=== PATIENT | male | born 1960 | race Caucasian/White ===

== ENCOUNTER 2019-09-16 15:20 | Inpatient (IN) | payer BC, OTHER ==
[~2019-09-16] VITALS: Ht 177.8 cm; Wt 79.4 kg
[2019-09-16] MEDS: IV NORMAL SALINE 1000ML BAG 1,000 ML IV SCH (16:01)
[2019-09-16] MEDS: fentaNYL PF VIAL 100 MCG/2 ML VIAL IVP PRN ×2 (16:01→22:21)
[2019-09-16] MEDS ORDERED: BENZOCAINE ONE 20% MUCOSAL SPRAY. MM (16:15)
[2019-09-16] MEDS ORDERED: LIDOCAINE 2% JELLY 6ML IN APPLICATOR. MM ONE ×2 (16:15→16:30)
[2019-09-16 17:17] LABS: BASO % 0 % (0-3); EOS % 0 % (0-3); HEMATOCRIT 41.7 % (39.0-53.0); HEMOGLOBIN 14.2 g/dL (13.0-17.5); LYMPH # 0.4 x10^3/uL (1.0-4.8); LYMPH % 2 % (24-48); MEAN CORPUSCULAR HEMOGLOBIN 31 pg (25-35); MEAN CORPUSCULAR HGB CONC 34 g/dL (31-37); MEAN CORPUSCULAR VOLUME 91 fL (79-100); MONO # 0.6 x10^3/uL (0.0-1.1); MONO % 3 % (0-9); NEUT % 95 % (31-73); PLATELET COUNT 313 x10^3/uL (140-400); RED BLOOD COUNT 4.57 x10^6/uL (4.30-5.70); RED CELL DISTRIBUTION WIDTH 13.9 % (11.5-14.5); WHITE BLOOD COUNT 20.1 x10^3/uL (4.0-11.0)
[2019-09-16 17:41] LABS: ALBUMIN 3.9 g/dL (3.4-5.0); CREATININE 1.9 mg/dL (0.7-1.3); GFR 36.2; POTASSIUM 4.6 mmol/L (3.5-5.1); TOTAL BILIRUBIN 0.5 mg/dL (0.2-1.0); TOTAL PROTEIN 7.7 g/dL (6.4-8.2)
[2019-09-16] MEDS ORDERED: PHENOL ORAL SPRAY 177ML BOTTLE. PO PRN (17:45)
--- NOTE | 2019-09-16 18:14 | PDOC2 ---
CONSULT Date of Consult Date of Consult DATE: 09/16/19 TIME: 18:06 Reason for Consult Reason for Consult: small bowel obstruction Referring Physician Referring Physician: Dr Painter Identification/Chief Complaint Chief Complaint abdominal distention Source Source: Chart review, Patient History of Present Illness Reason for Visit: Mr Alvarez is a 59 yo gentleman who for the last few days has had abdominal pain, nausea and bloating. No emesis or diarrhea. Hx of GERD having had previous EGDs Past Medical History Cardiovascular: HTN CENTRAL NERVOUS SYSTEM: CVA GI: GERD Past Surgical History Past Surgical History: Hernia Repair (umbilical, eye surgery) Family History Family History: No Significant Social History No ALCOHOL: none Drugs: None Current Medications Current Medications Current Medications Fentanyl Citrate (Fentanyl 2ml Vial) 50 mcg PRN Q3HRS PRN IVP PAIN Last administered on 09/16/19at 16:01; Start 09/16/19 at 15:45 Sodium Chloride 1,000 ml @ 100 mls/hr Q10H IV Last administered on 09/16/19at 16:01; Start 09/16/19 at 15:45 Lidocaine HCl (Glydo (Lidocaine) Jelly) 2 iván 1X ONCE MM Last administered on 09/16/19at 16:30; Start 09/16/19 at 16:30; Stop 09/16/19 at 16:31; Status DC Benzocaine (Hurricaine One) 1 spray 1X ONCE MM Last administered on 09/16/19at 16:15; Start 09/16/19 at 16:15; Stop 09/16/19 at 16:24; Status DC Lidocaine HCl (Glydo (Lidocaine) Jelly) 2 iván 1X ONCE MM ; Start 09/16/19 at 16:15; Stop 09/16/19 at 16:16; Status UNV Throat Lozenges (Cepacol Sore Throat Lozenge) 1 ted PRN Q2HRS PRN PO SORE THROAT; Start 09/16/19 at 17:45; Status UNV Phenol (Chloraseptic) 1 spray PRN Q2HR PRN PO SORE THROAT; Start 09/16/19 at 17:45; Status UNV Allergies Allergies: Coded Allergies: No Known Drug Allergies (Unverified , 09/16/19) ROS Gastrointestinal: Yes Nausea, Yes Abdominal Pain Physical Exam General: Alert, Oriented X3, No acute distress HEENT: Atraumatic Lungs: Normal air movement Heart: Regular rate Abdomen: Other (distended, soft, minimally TTP ) Extremities: No clubbing Skin: Other (warm, dry) Neuro: Normal speech Vitals VITALS Vital Signs Date Time Temp Pulse Resp B/P (MAP) Pulse Ox O2 Delivery O2 Flow Rate FiO2 09/16/19 16:31 Room Air Labs Labs Laboratory Tests Test 09/16/19 17:10 White Blood Count 20.1 x10^3/uL (4.0-11.0) Red Blood Count 4.57 x10^6/uL (4.30-5.70) Hemoglobin 14.2 g/dL (13.0-17.5) Hematocrit 41.7 % (39.0-53.0) Mean Corpuscular Volume 91 fL (79-100) Mean Corpuscular Hemoglobin 31 pg (25-35) Mean Corpuscular Hemoglobin Concent 34 g/dL (31-37) Red Cell Distribution Width 13.9 % (11.5-14.5) Platelet Count 313 x10^3/uL (140-400) Neutrophils (%) (Auto) 95 % (31-73) Lymphocytes (%) (Auto) 2 % (24-48) Monocytes (%) (Auto) 3 % (0-9) Eosinophils (%) (Auto) 0 % (0-3) Basophils (%) (Auto) 0 % (0-3) Neutrophils # (Auto) 19.0 x10^3/uL (1.8-7.7) Lymphocytes # (Auto) 0.4 x10^3/uL (1.0-4.8) Monocytes # (Auto) 0.6 x10^3/uL (0.0-1.1) Eosinophils # (Auto) 0.0 x10^3/uL (0.0-0.7) Basophils # (Auto) 0.0 x10^3/uL (0.0-0.2) Sodium Level 137 mmol/L (136-145) Potassium Level 4.6 mmol/L (3.5-5.1) Chloride Level 97 mmol/L (98-107) Carbon Dioxide Level 31 mmol/L (21-32) Anion Gap 9 (6-14) Blood Urea Nitrogen 37 mg/dL (8-26) Creatinine 1.9 mg/dL (0.7-1.3) Estimated GFR (Cockcroft-Gault) 36.2 BUN/Creatinine Ratio 19 (6-20) Glucose Level 183 mg/dL (70-99) Lactic Acid Level 3.0 mmol/L (0.4-2.0) Calcium Level 10.0 mg/dL (8.5-10.1) Total Bilirubin 0.5 mg/dL (0.2-1.0) Aspartate Amino Transf (AST/SGOT) 13 U/L (15-37) Alanine Aminotransferase (ALT/SGPT) 28 U/L (16-63) Alkaline Phosphatase 66 U/L (46-116) Lactate Dehydrogenase 144 U/L (85-227) Total Protein 7.7 g/dL (6.4-8.2) Albumin 3.9 g/dL (3.4-5.0) Albumin/Globulin Ratio 1.0 (1.0-1.7) Laboratory Tests Test 09/16/19 17:10 White Blood Count 20.1 x10^3/uL (4.0-11.0) Red Blood Count 4.57 x10^6/uL (4.30-5.70) Hemoglobin 14.2 g/dL (13.0-17.5) Hematocrit 41.7 % (39.0-53.0) Mean Corpuscular Volume 91 fL (79-100) Mean Corpuscular Hemoglobin 31 pg (25-35) Mean Corpuscular Hemoglobin Concent 34 g/dL (31-37) Red Cell Distribution Width 13.9 % (11.5-14.5) Platelet Count 313 x10^3/uL (140-400) Neutrophils (%) (Auto) 95 % (31-73) Lymphocytes (%) (Auto) 2 % (24-48) Monocytes (%) (Auto) 3 % (0-9) Eosinophils (%) (Auto) 0 % (0-3) Basophils (%) (Auto) 0 % (0-3) Neutrophils # (Auto) 19.0 x10^3/uL (1.8-7.7) Lymphocytes # (Auto) 0.4 x10^3/uL (1.0-4.8) Monocytes # (Auto) 0.6 x10^3/uL (0.0-1.1) Eosinophils # (Auto) 0.0 x10^3/uL (0.0-0.7) Basophils # (Auto) 0.0 x10^3/uL (0.0-0.2) Sodium Level 137 mmol/L (136-145) Potassium Level 4.6 mmol/L (3.5-5.1) Chloride Level 97 mmol/L (98-107) Carbon Dioxide Level 31 mmol/L (21-32) Anion Gap 9 (6-14) Blood Urea Nitrogen 37 mg/dL (8-26) Creatinine 1.9 mg/dL (0.7-1.3) Estimated GFR (Cockcroft-Gault) 36.2 BUN/Creatinine Ratio 19 (6-20) Glucose Level 183 mg/dL (70-99) Lactic Acid Level 3.0 mmol/L (0.4-2.0) Calcium Level 10.0 mg/dL (8.5-10.1) Total Bilirubin 0.5 mg/dL (0.2-1.0) Aspartate Amino Transf (AST/SGOT) 13 U/L (15-37) Alanine Aminotransferase (ALT/SGPT) 28 U/L (16-63) Alkaline Phosphatase 66 U/L (46-116) Lactate Dehydrogenase 144 U/L (85-227) Total Protein 7.7 g/dL (6.4-8.2) Albumin 3.9 g/dL (3.4-5.0) Albumin/Globulin Ratio 1.0 (1.0-1.7) Images Images CT done at [facility] earlier today is reviewed Assessment/Plan Assessment/Plan SBO acidosis follow labs NG placed with 1000 cc old heme immediate return serial labs, X rays will follow Thanks for consult RAMAN GRIDER MD Sep 16, 2019 18:14
[2019-09-16] MEDS ORDERED: TELM1TAB PO (18:25)
[2019-09-16] MEDS ORDERED: ATOR20TA58 PO (18:26)
[2019-09-16 19:00] VITALS: BP 118/78
[2019-09-16] MEDS ORDERED: BENZOCAINE/MENTHOL LOZENGE. PO PRN (19:00)
[2019-09-16] MEDS: BENZOCAINE/MENTHOL LOZENGE. PO PRN (19:33)
--- NOTE | 2019-09-16 21:45 | NUR ---
Dr. Painter notified of lactic acid re-draw level of 2.5. Per MD, no orders received for re-draw of lactic level and continue IV fluids. Patient in bed, will continue to monitor.
[2019-09-16 23:00] VITALS: BP 131/82
[2019-09-17] VITALS (13 sets, daily range): BP systolic 84–129; BP diastolic 50–85
[2019-09-17] MEDS: IV NORMAL SALINE 1000ML BAG 1,000 ML IV SCH ×3 (01:42→21:33)
[2019-09-17] MEDS: BENZOCAINE/MENTHOL LOZENGE. PO PRN (06:07)
--- NOTE | 2019-09-17 06:35 | PDOC ---
SURGICAL PROGRESS NOTE Subjective had a little emesis earlier, tube adjusted, now with good drainage and no further emesis Vital Signs Vital Signs Date Time Temp Pulse Resp B/P (MAP) Pulse Ox O2 Delivery O2 Flow Rate FiO2 09/17/19 03:00 98.5 112 22 129/85 (100) 91 Room Air 98.5 I&O Intake and Output 09/17/19 07:00 Intake Total 100 ml Output Total 3600 ml Balance -3500 ml Intake Oral 100 ml Output Gastric Drainage Total 3600 ml # Voids 1 PATIENT HAS A REDMAN: No General: Alert, No acute distress HEENT: Other (NG with old heme ) Lungs: Normal air movement Abdomen: Soft, Other (distended) Labs Laboratory Tests Test 09/16/19 17:10 09/16/19 20:20 White Blood Count 20.1 x10^3/uL (4.0-11.0) Red Blood Count 4.57 x10^6/uL (4.30-5.70) Hemoglobin 14.2 g/dL (13.0-17.5) Hematocrit 41.7 % (39.0-53.0) Mean Corpuscular Volume 91 fL (79-100) Mean Corpuscular Hemoglobin 31 pg (25-35) Mean Corpuscular Hemoglobin Concent 34 g/dL (31-37) Red Cell Distribution Width 13.9 % (11.5-14.5) Platelet Count 313 x10^3/uL (140-400) Neutrophils (%) (Auto) 95 % (31-73) Lymphocytes (%) (Auto) 2 % (24-48) Monocytes (%) (Auto) 3 % (0-9) Eosinophils (%) (Auto) 0 % (0-3) Basophils (%) (Auto) 0 % (0-3) Neutrophils # (Auto) 19.0 x10^3/uL (1.8-7.7) Lymphocytes # (Auto) 0.4 x10^3/uL (1.0-4.8) Monocytes # (Auto) 0.6 x10^3/uL (0.0-1.1) Eosinophils # (Auto) 0.0 x10^3/uL (0.0-0.7) Basophils # (Auto) 0.0 x10^3/uL (0.0-0.2) Sodium Level 137 mmol/L (136-145) Potassium Level 4.6 mmol/L (3.5-5.1) Chloride Level 97 mmol/L (98-107) Carbon Dioxide Level 31 mmol/L (21-32) Anion Gap 9 (6-14) Blood Urea Nitrogen 37 mg/dL (8-26) Creatinine 1.9 mg/dL (0.7-1.3) Estimated GFR (Cockcroft-Gault) 36.2 BUN/Creatinine Ratio 19 (6-20) Glucose Level 183 mg/dL (70-99) Lactic Acid Level 3.0 mmol/L (0.4-2.0) 2.5 mmol/L (0.4-2.0) Calcium Level 10.0 mg/dL (8.5-10.1) Total Bilirubin 0.5 mg/dL (0.2-1.0) Aspartate Amino Transf (AST/SGOT) 13 U/L (15-37) Alanine Aminotransferase (ALT/SGPT) 28 U/L (16-63) Alkaline Phosphatase 66 U/L (46-116) Lactate Dehydrogenase 144 U/L (85-227) Total Protein 7.7 g/dL (6.4-8.2) Albumin 3.9 g/dL (3.4-5.0) Albumin/Globulin Ratio 1.0 (1.0-1.7) Laboratory Tests Test 09/16/19 17:10 09/16/19 20:20 White Blood Count 20.1 x10^3/uL (4.0-11.0) Red Blood Count 4.57 x10^6/uL (4.30-5.70) Hemoglobin 14.2 g/dL (13.0-17.5) Hematocrit 41.7 % (39.0-53.0) Mean Corpuscular Volume 91 fL (79-100) Mean Corpuscular Hemoglobin 31 pg (25-35) Mean Corpuscular Hemoglobin Concent 34 g/dL (31-37) Red Cell Distribution Width 13.9 % (11.5-14.5) Platelet Count 313 x10^3/uL (140-400) Neutrophils (%) (Auto) 95 % (31-73) Lymphocytes (%) (Auto) 2 % (24-48) Monocytes (%) (Auto) 3 % (0-9) Eosinophils (%) (Auto) 0 % (0-3) Basophils (%) (Auto) 0 % (0-3) Neutrophils # (Auto) 19.0 x10^3/uL (1.8-7.7) Lymphocytes # (Auto) 0.4 x10^3/uL (1.0-4.8) Monocytes # (Auto) 0.6 x10^3/uL (0.0-1.1) Eosinophils # (Auto) 0.0 x10^3/uL (0.0-0.7) Basophils # (Auto) 0.0 x10^3/uL (0.0-0.2) Sodium Level 137 mmol/L (136-145) Potassium Level 4.6 mmol/L (3.5-5.1) Chloride Level 97 mmol/L (98-107) Carbon Dioxide Level 31 mmol/L (21-32) Anion Gap 9 (6-14) Blood Urea Nitrogen 37 mg/dL (8-26) Creatinine 1.9 mg/dL (0.7-1.3) Estimated GFR (Cockcroft-Gault) 36.2 BUN/Creatinine Ratio 19 (6-20) Glucose Level 183 mg/dL (70-99) Lactic Acid Level 3.0 mmol/L (0.4-2.0) 2.5 mmol/L (0.4-2.0) Calcium Level 10.0 mg/dL (8.5-10.1) Total Bilirubin 0.5 mg/dL (0.2-1.0) Aspartate Amino Transf (AST/SGOT) 13 U/L (15-37) Alanine Aminotransferase (ALT/SGPT) 28 U/L (16-63) Alkaline Phosphatase 66 U/L (46-116) Lactate Dehydrogenase 144 U/L (85-227) Total Protein 7.7 g/dL (6.4-8.2) Albumin 3.9 g/dL (3.4-5.0) Albumin/Globulin Ratio 1.0 (1.0-1.7) this AM labs PND I have reviewed the following plain abd films PND Assessment/Plan SBO UGI bleeding follow labs, x rays consult GI start PPI RAMAN GRIDER MD Sep 17, 2019 06:35
[2019-09-17 08:09] LABS: BASO % 0 % (0-3); EOS % 0 % (0-3); HEMATOCRIT 41.5 % (39.0-53.0); HEMOGLOBIN 14.2 g/dL (13.0-17.5); LYMPH # 0.6 x10^3/uL (1.0-4.8); LYMPH % 3 % (24-48); MEAN CORPUSCULAR HEMOGLOBIN 31 pg (25-35); MEAN CORPUSCULAR HGB CONC 34 g/dL (31-37); MEAN CORPUSCULAR VOLUME 91 fL (79-100); MONO # 1.4 x10^3/uL (0.0-1.1); MONO % 6 % (0-9); NEUT % 91 % (31-73); PLATELET COUNT 347 x10^3/uL (140-400); RED BLOOD COUNT 4.55 x10^6/uL (4.30-5.70); RED CELL DISTRIBUTION WIDTH 14.2 % (11.5-14.5); WHITE BLOOD COUNT 21.9 x10^3/uL (4.0-11.0)
[2019-09-17] MEDS: PANTOPRAZOLE IV PUSH 40 MG VIAL. IVP SCH (08:33)
[2019-09-17 08:34] LABS: CALCIUM 10.6 mg/dL (8.5-10.1); CREATININE 2.2 mg/dL (0.7-1.3); GFR 30.6; POTASSIUM 4.2 mmol/L (3.5-5.1)
--- NOTE | 2019-09-17 09:00 | RAD ---
Portable supine abdomen-3 images HISTORY: Small bowel obstruction follow-up. COMPARISON: No prior radiographs for correlation with CT scan of previous day. FINDINGS: Small bowel loops are moderately distended with gas compatible with obstruction. No definite free intraperitoneal gas is seen. Mild atelectasis or infiltrate in lung bases. Endogastric tube extends to the left upper quadrant, overlying the gastric bubble. Small focal abdominal densities may represent bowel content. IMPRESSION: Small bowel obstruction. Electronically signed by: Delbert Weathers MD (09/17/2019 8:57 AM) [facility]
--- NOTE | 2019-09-17 09:23 | PDOC ---
Provider Note Provider Note SURG increased lactic acid and WBC still with lots of NG return belly soft, non TTP given labs recommend l/s poss laparotomy risks including but not limited to bleeding, infection injury to abdominal contents, anastomotic leak, possible stoma he will proceed RAMAN GRIDER MD Sep 17, 2019 09:23
[2019-09-17] MEDS ORDERED: ROCURONIUM 50 MG/5 ML VIAL. ONE (09:30)
[2019-09-17] MEDS ORDERED: DEXAMETHASONE SOD PHOS 4 MG/ML VIAL ONE (09:30)
[2019-09-17] MEDS ORDERED: GLYCOPYRROLATE 1 MG/5 ML VIAL. ONE (09:30)
[2019-09-17] MEDS ORDERED: LIDOCAINE 2% PF 5 ML VIAL. ONE ×2 (09:30→12:43)
[2019-09-17] MEDS ORDERED: NEOSTIGMINE METHYLSULFATE 5 MG/5 ML SYRINGE. ONE (09:30)
[2019-09-17] MEDS ORDERED: PROPOFOL 20 ML IV ONE (09:30)
[2019-09-17] MEDS ORDERED: ONDANSETRON PF 4 MG/2 ML VIAL. ONE (09:30)
[2019-09-17] MEDS ORDERED: PIPERACILLIN/TAZOBACTAM 3.375 GM in IV NORMAL SALINE 50ML 50 ML IV ONE (09:30)
[2019-09-17] MEDS ORDERED: DESFLURANE 61 TO 120 MINUTES IH ONE (09:30)
[2019-09-17] MEDS ORDERED: fentaNYL PF VIAL 100 MCG/2 ML VIAL ONE ×3 (09:30→13:22)
[2019-09-17] MEDS ORDERED: IV RINGERS,LACTATED 1000ML 1,000 ML IV SCH (09:52)
[2019-09-17] MEDS ORDERED: PROCHLORPERAZINE 10 MG/2 ML VIAL. IV PRN (10:00)
[2019-09-17] MEDS ORDERED: fentaNYL PF VIAL 100 MCG/2 ML VIAL IV PRN ×2 (10:00)
[2019-09-17] MEDS ORDERED: ONDANSETRON PF 4 MG/2 ML VIAL. IV PRN (10:00)
[2019-09-17] MEDS ORDERED: MORPHINE SULFATE 2 MG/ML VIAL. IV PRN (10:00)
[2019-09-17] MEDS ORDERED: HYDROmorphone 2 MG/ML VIAL IV PRN (10:00)
[2019-09-17] MEDS ORDERED: LIDOCAINE 1% PF 2 ML VIAL. ID PRN (10:00)
[2019-09-17] MEDS ORDERED: BUPIVACAINE-EPI 0.5%-1:200000 MPF 30 ML VIAL. INJ ONE (11:15)
[2019-09-17] MEDS ORDERED: PHENYLEPHRINE in 0.9% NACL PF 1 MG/10 ML SYRINGE. IV ONE ×3 (11:28→12:21)
[2019-09-17 11:30] LABS: % BANDS 3 % (0-9); % LYMPHS 5 % (24-48); % MONOS 7 % (0-10); % SEGS 85 % (35-66); PLT ESTIMATE ADEQUATE (ADEQUATE)
--- NOTE | 2019-09-17 13:48 | PDOC ---
BRIEF OPERATIVE NOTE Date: Sep 17, 2019 Pre-Op Diagnosis SBO, lactic acidosis Post-Op Diagnosis same with adhesions mid-ileum Procedure Performed l/s -> laparotomy with YOANNA Surgeon Alvaro Paleobotanist Charlene TAVERAS Anesthesia Type: General Blood Loss 45cc IV Fluid 2300cc Urine Output 100cc Specimens Obtained none Findings adhesions RLQ mid ileum, viable bowel Complications none Operative Note Wk # [id number] RAMAN GRIDER MD Sep 17, 2019 13:48
--- NOTE | 2019-09-17 14:21 | NUR ---
Bonilla catheter discontinued at this time post-surgery.
--- NOTE | 2019-09-17 14:50 | OP ---
DATE OF SURGERY: 09/17/2019 PREOPERATIVE DIAGNOSIS: Small bowel obstruction with lactic acidosis. POSTOPERATIVE DIAGNOSIS: Small bowel obstruction with lactic acidosis with adhesions in the mid ileum. PROCEDURE PERFORMED: Laparoscopic converted to open exploration with lysis of adhesions. SURGEON: Yefri Grider M.D. [employer]ER [employer]: DARCY Patton ANESTHESIA: General endotracheal. ESTIMATED BLOOD LOSS: 45 mL. INTRAVENOUS FLUIDS: 2300 mL. URINE OUTPUT: 100 mL. INDICATIONS: The patient is a 59-year-old who presented with a small-bowel obstruction and a copious NG return. His lactic acid went up overnight and despite a benign exam he is brought for exploration to assure bowel viability. OPERATIVE FINDINGS: In the mid ileum, there were several loops of small bowel that were adherent and creating a physical obstruction with dilated bowel proximally and decompressed bowel distal to the process. All bowel was viable. DESCRIPTION OF PROCEDURE: The patient was brought to the operating suite, given a general endotracheal anesthetic. Bonilla catheter placed to dependent drainage and the abdomen was prepped and draped in the usual sterile fashion. A supraumbilical incision was infiltrated with local anesthetic, incised, and a 5-mm Visiport used to safely gain access into the abdominal cavity avoiding injury to abdominal contents. Under direct vision, a lower midline port and a left lower quadrant port were each placed. With the table in Trendelenburg rolled to the left, we tried to identify the transition point between dilated and nondilated bowel and in doing so, found an area of extensive adhesions within the bowel loops. This prompted converting to an open procedure by connecting the port sites in the midline with a midline incision. The small bowel was run from ligament of Treitz to the ileocecal valve. The area of obstruction was encountered and carefully taken down with sharp dissection. No enterotomies were created. Bowel was run again from ligament of Treitz to ileocecal valve. It was found to be viable without any remaining obstruction. In light of this and on a correct sponge count was obtained, the incision was closed in a single layer using looped 0 PDS in running fashion, tied in the middle. Subq approximated with 3-0 Vicryl, skin closed with a subcuticular 4-0 Monocryl. Steri-Strips and sterile dressings applied. Postop foreign body film was negative for unexplained foreign body. The patient was awakened from his anesthetic and taken to the recovery room in satisfactory condition. YEFRI GRIDER MD DR: VALORIE/sven JOB#: [id number] / [id number] ANNE Montes MD
--- NOTE | 2019-09-17 15:27 | RAD ---
AP abdomen radiograph 09/17/2019 CLINICAL HISTORY: Post exploratory lap. An AP supine digital radiograph abdomen/pelvis was obtained. Mild air distention of both small and large bowel loops is seen which likely reflects an ileus. No retained surgical instrument or needle is seen. The osseous structures are grossly intact. IMPRESSION: No retained surgical instrument or needle is seen. Electronically signed by: Dwayne Lopez MD (09/17/2019 3:24 PM) [id number]
[2019-09-17] MEDS: fentaNYL PF VIAL 100 MCG/2 ML VIAL IVP PRN (15:34)
--- NOTE | 2019-09-17 16:04 | PDOC2 ---
CONSULT Date of Consult Date of Consult DATE: 09/17/19 TIME: 15:59 Reason for Consult Reason for Consult: Blood in the NG tube aspirate History of Present Illness Reason for Visit: This a 59-year-old gentleman who presents with the relatively sudden set of abdominal distention and pain. He was found on imaging to have a small bowel obstruction. He has had an repair but no other abdominal surgeries. An NG tube was placed initially for decompression and old blood was noted in the NG aspirate. History is that of long-standing reflux for which he takes [id number] Prilosec. He denies dysphagia and has a history of previous endoscopy years ago. He denies a prior history of peptic ulcer disease. Not had a prior screening colonoscopy. Past Medical History Cardiovascular: HTN CENTRAL NERVOUS SYSTEM: CVA GI: GERD Past Surgical History Past Surgical History: Hernia Repair (umbilical, eye surgery) Family History Family History: No Significant Social History No ALCOHOL: none Drugs: None Current Medications Current Medications Current Medications Fentanyl Citrate (Fentanyl 2ml Vial) 50 mcg PRN Q3HRS PRN IVP PAIN Last administered on 09/17/19at 15:34; Start 09/16/19 at 15:45 Sodium Chloride 1,000 ml @ 100 mls/hr Q10H IV Last administered on 09/17/19at 13:55; Start 09/16/19 at 15:45 Lidocaine HCl (Glydo (Lidocaine) Jelly) 2 vián 1X ONCE MM Last administered on 09/16/19at 16:30; Start 09/16/19 at 16:30; Stop 09/16/19 at 16:31; Status DC Benzocaine (Hurricaine One) 1 spray 1X ONCE MM Last administered on 09/16/19at 16:15; Start 09/16/19 at 16:15; Stop 09/16/19 at 16:24; Status DC Lidocaine HCl (Glydo (Lidocaine) Jelly) 2 iván 1X ONCE MM ; Start 09/16/19 at 16:15; Stop 09/16/19 at 16:16; Status UNV Throat Lozenges (Cepacol Sore Throat Lozenge) 1 ted PRN Q2HRS PRN PO SORE THROAT Last administered on 09/17/19at 06:07; Start 09/16/19 at 17:45; Stop 1/1/20 at 09:23; Status DC Phenol (Chloraseptic) 1 spray PRN Q2HR PRN PO SORE THROAT; Start 09/16/19 at 17:45 Throat Lozenges (Cepacol Sore Throat Lozenge) 1 ted PRN Q2HRS PRN PO SORE THROAT; Start 09/16/19 at 19:00 Pantoprazole Sodium (PROTONIX VIAL for IV PUSH) 40 mg DAILYAC IVP Last administ ered on 09/17/19at 08:33; Start 09/17/19 at 07:30 Piperacillin Sod/ Tazobactam Sod 3.375 gm/Sodium Chloride 50 ml @ 100 mls/hr 1X ONCE IV Last administered on 09/17/19at 11:05; Start 09/17/19 at 09:30; Stop 09/17/19 at 09:59; Status DC Fentanyl Citrate (Fentanyl 2ml Vial) 100 mcg STK-MED ONCE .ROUTE ; Start 09/17/19 at 09:30; Stop 09/17/19 at 09:30; Status DC Glycopyrrolate (Robinul) 1 mg STK-MED ONCE .ROUTE ; Start 09/17/19 at 09:30; Stop 09/17/19 at 09:30; Status DC Neostigmine Methylsulfate (Neostigmine Methylsulfate) 5 mg STK-MED ONCE .ROUTE ; Start 09/17/19 at 09:30; Stop 09/17/19 at 09:30; Status DC Rocuronium [place] (Zemuron) 50 mg STK-MED ONCE .ROUTE ; Start 09/17/19 at 09:30; Stop 09/17/19 at 09:30; Status DC Desflurane (Suprane) 60 ml STK-MED ONCE IH ; Start 09/17/19 at 09:30; Stop 09/17/19 at 09:31; Status DC Propofol 20 ml @ As Directed STK-MED ONCE IV ; Start 09/17/19 at 09:30; Stop 09/17/19 at 09:31; Status DC Lidocaine HCl (Lidocaine Pf 2% Vial) 5 ml STK-MED ONCE .ROUTE ; Start 09/17/19 at 09:30; Stop 09/17/19 at 09:31; Status DC Ondansetron HCl (Zofran) 4 mg STK-MED ONCE .ROUTE ; Start 09/17/19 at 09:30; Stop 09/17/19 at 09:31; Status DC Dexamethasone Sodium Phosphate (Decadron) 4 mg STK-MED ONCE .ROUTE ; Start 09/17/19 at 09:30; Stop 09/17/19 at 09:31; Status DC Ondansetron HCl (Zofran) 4 mg PRN Q6HRS PRN IV NAUSEA/VOMITING; Start 09/17/19 at 10:00; Stop 09/17/19 at 20:00 Fentanyl Citrate (Fentanyl 2ml Vial) 25 mcg PRN Q5MIN PRN IV MILD PAIN 1-3; Start 09/17/19 at 10:00; Stop 09/17/19 at 20:00 Fentanyl Citrate (Fentanyl 2ml Vial) 50 mcg PRN Q5MIN PRN IV MODERATE TO SEVERE PAIN Last administered on 09/17/19at 13:25; Start 09/17/19 at 10:00; Stop 09/17/19 at 20:00 Morphine Sulfate (Morphine Sulfate) 1 mg PRN Q10MIN PRN IV SEVERE PAIN 7-10; Start 09/17/19 at 10:00; Stop 09/17/19 at 20:00 Ringer's Solution 1,000 ml @ 30 mls/hr Q24H IV ; Start 09/17/19 at 09:52; Stop 09/17/19 at 21:51 Lidocaine HCl (Xylocaine-Mpf 1% 2ml Vial) 2 ml PRN 1X PRN ID PRIOR TO IV START; Start 09/17/19 at 10:00; Stop 09/17/19 at 20:00 Hydromorphone HCl (Dilaudid) 0.5 mg PRN Q10MIN PRN IV SEV PAIN, Second choice; Start 09/17/19 at 10:00; Stop 09/17/19 at 20:00 Prochlorperazine Edisylate (Compazine) 5 mg PACU PRN PRN IV NAUSEA, MRX1; Start 09/17/19 at 10:00; Stop 09/17/19 at 20:00 Bupivacaine HCl/ Epinephrine Bitart (Sensorcain-Epi 0.5%-1:419097 Mpf) 30 ml 1X ONCE INJ Last administered on 09/17/19at 11:34; Start 09/17/19 at 11:15; Stop 09/17/19 at 11:16; Status DC Phenylephrine HCl (PHENYLEPHRINE in 0.9% NACL PF) 1 mg STK-MED ONCE IV ; Start 09/17/19 at 11:28; Stop 09/17/19 at 11:28; Status DC Phenylephrine HCl (PHENYLEPHRINE in 0.9% NACL PF) 1 mg STK-MED ONCE IV ; Start 09/17/19 at 11:43; Stop 09/17/19 at 11:44; Status DC Phenylephrine HCl (PHENYLEPHRINE in 0.9% NACL PF) 1 mg STK-MED ONCE IV ; Start 09/17/19 at 12:21; Stop 09/17/19 at 12:21; Status DC Fentanyl Citrate (Fentanyl 2ml Vial) 100 mcg STK-MED ONCE .ROUTE ; Start 09/17/19 at 12:21; Stop 09/17/19 at 12:22; Status DC Lidocaine HCl (Lidocaine Pf 2% Vial) 5 ml STK-MED ONCE .ROUTE ; Start 09/17/19 at 12:43; Stop 09/17/19 at 12:43; Status DC Fentanyl Citrate (Fentanyl 2ml Vial) 100 mcg STK-MED ONCE .ROUTE ; Start 09/17/19 at 13:22; Stop 09/17/19 at 13:23; Status DC Active Scripts Active Reported Atorvastatin Calcium 20 Mg Tablet 1 Tab PO DAILY Micardis Hct 80-25 Mg Tablet (Telmisartan/Hydrochlorothiazid) 1 Each Tablet 1 Tab PO DAILY Allergies Allergies: Coded Allergies: No Known Drug Allergies (Unverified , 09/16/19) Physical Exam General: Alert, Oriented X3 HEENT: Atraumatic Lungs: Clear to auscultation Heart: Regular rate, Normal S1, Normal S2 Abdomen: Soft, No tenderness, No hepatosplenomegaly, Other (post op, soft, few bowel sounds) Extremities: No clubbing Psych/Mental Status: Mental status NL Vitals VITALS Vital Signs Date Time Temp Pulse Resp B/P (MAP) Pulse Ox O2 Delivery O2 Flow Rate FiO2 09/17/19 15:34 94 Nasal Cannula 2.0 09/17/19 14:15 102 22 91/58 (69) 09/17/19 13:22 98.1 98.1 Labs Labs Laboratory Tests Test 09/16/19 17:10 09/16/19 20:20 09/17/19 07:58 White Blood Count 20.1 x10^3/uL (4.0-11.0) 21.9 x10^3/uL (4.0-11.0) Red Blood Count 4.57 x10^6/uL (4.30-5.70) 4.55 x10^6/uL (4.30-5.70) Hemoglobin 14.2 g/dL (13.0-17.5) 14.2 g/dL (13.0-17.5) Hematocrit 41.7 % (39.0-53.0) 41.5 % (39.0-53.0) Mean Corpuscular Volume 91 fL (79-100) 91 fL (79-100) Mean Corpuscular Hemoglobin 31 pg (25-35) 31 pg (25-35) Mean Corpuscular Hemoglobin Concent 34 g/dL (31-37) 34 g/dL (31-37) Red Cell Distribution Width 13.9 % (11.5-14.5) 14.2 % (11.5-14.5) Platelet Count 313 x10^3/uL (140-400) 347 x10^3/uL (140-400) Neutrophils (%) (Auto) 95 % (31-73) 91 % (31-73) Lymphocytes (%) (Auto) 2 % (24-48) 3 % (24-48) Monocytes (%) (Auto) 3 % (0-9) 6 % (0-9) Eosinophils (%) (Auto) 0 % (0-3) 0 % (0-3) Basophils (%) (Auto) 0 % (0-3) 0 % (0-3) Neutrophils # (Auto) 19.0 x10^3/uL (1.8-7.7) 20.0 x10^3/uL (1.8-7.7) Lymphocytes # (Auto) 0.4 x10^3/uL (1.0-4.8) 0.6 x10^3/uL (1.0-4.8) Monocytes # (Auto) 0.6 x10^3/uL (0.0-1.1) 1.4 x10^3/uL (0.0-1.1) Eosinophils # (Auto) 0.0 x10^3/uL (0.0-0.7) 0.0 x10^3/uL (0.0-0.7) Basophils # (Auto) 0.0 x10^3/uL (0.0-0.2) 0.0 x10^3/uL (0.0-0.2) Sodium Level 137 mmol/L (136-145) 142 mmol/L (136-145) Potassium Level 4.6 mmol/L (3.5-5.1) 4.2 mmol/L (3.5-5.1) Chloride Level 97 mmol/L (98-107) 97 mmol/L (98-107) Carbon Dioxide Level 31 mmol/L (21-32) 35 mmol/L (21-32) Anion Gap 9 (6-14) 10 (6-14) Blood Urea Nitrogen 37 mg/dL (8-26) 55 mg/dL (8-26) Creatinine 1.9 mg/dL (0.7-1.3) 2.2 mg/dL (0.7-1.3) Estimated GFR (Cockcroft-Gault) 36.2 30.6 BUN/Creatinine Ratio 19 (6-20) Glucose Level 183 mg/dL (70-99) 160 mg/dL (70-99) Lactic Acid Level 3.0 mmol/L (0.4-2.0) 2.5 mmol/L (0.4-2.0) 3.4 mmol/L (0.4-2.0) Calcium Level 10.0 mg/dL (8.5-10.1) 10.6 mg/dL (8.5-10.1) Total Bilirubin 0.5 mg/dL (0.2-1.0) Aspartate Amino Transf (AST/SGOT) 13 U/L (15-37) Alanine Aminotransferase (ALT/SGPT) 28 U/L (16-63) Alkaline Phosphatase 66 U/L (46-116) Lactate Dehydrogenase 144 U/L (85-227) Total Protein 7.7 g/dL (6.4-8.2) Albumin 3.9 g/dL (3.4-5.0) Albumin/Globulin Ratio 1.0 (1.0-1.7) Segmented Neutrophils % 85 % (35-66) Band Neutrophils % 3 % (0-9) Lymphocytes % 5 % (24-48) Monocytes % 7 % (0-10) Platelet Estimate Adequate (ADEQUATE) Laboratory Tests Test 09/16/19 17:10 09/16/19 20:20 09/17/19 07:58 White Blood Count 20.1 x10^3/uL (4.0-11.0) 21.9 x10^3/uL (4.0-11.0) Red Blood Count 4.57 x10^6/uL (4.30-5.70) 4.55 x10^6/uL (4.30-5.70) Hemoglobin 14.2 g/dL (13.0-17.5) 14.2 g/dL (13.0-17.5) Hematocrit 41.7 % (39.0-53.0) 41.5 % (39.0-53.0) Mean Corpuscular Volume 91 fL (79-100) 91 fL (79-100) Mean Corpuscular Hemoglobin 31 pg (25-35) 31 pg (25-35) Mean Corpuscular Hemoglobin Concent 34 g/dL (31-37) 34 g/dL (31-37) Red Cell Distribution Width 13.9 % (11.5-14.5) 14.2 % (11.5-14.5) Platelet Count 313 x10^3/uL (140-400) 347 x10^3/uL (140-400) Neutrophils (%) (Auto) 95 % (31-73) 91 % (31-73) Lymphocytes (%) (Auto) 2 % (24-48) 3 % (24-48) Monocytes (%) (Auto) 3 % (0-9) 6 % (0-9) Eosinophils (%) (Auto) 0 % (0-3) 0 % (0-3) Basophils (%) (Auto) 0 % (0-3) 0 % (0-3) Neutrophils # (Auto) 19.0 x10^3/uL (1.8-7.7) 20.0 x10^3/uL (1.8-7.7) Lymphocytes # (Auto) 0.4 x10^3/uL (1.0-4.8) 0.6 x10^3/uL (1.0-4.8) Monocytes # (Auto) 0.6 x10^3/uL (0.0-1.1) 1.4 x10^3/uL (0.0-1.1) Eosinophils # (Auto) 0.0 x10^3/uL (0.0-0.7) 0.0 x10^3/uL (0.0-0.7) Basophils # (Auto) 0.0 x10^3/uL (0.0-0.2) 0.0 x10^3/uL (0.0-0.2) Sodium Level 137 mmol/L (136-145) 142 mmol/L (136-145) Potassium Level 4.6 mmol/L (3.5-5.1) 4.2 mmol/L (3.5-5.1) Chloride Level 97 mmol/L (98-107) 97 mmol/L (98-107) Carbon Dioxide Level 31 mmol/L (21-32) 35 mmol/L (21-32) Anion Gap 9 (6-14) 10 (6-14) Blood Urea Nitrogen 37 mg/dL (8-26) 55 mg/dL (8-26) Creatinine 1.9 mg/dL (0.7-1.3) 2.2 mg/dL (0.7-1.3) Estimated GFR (Cockcroft-Gault) 36.2 30.6 BUN/Creatinine Ratio 19 (6-20) Glucose Level 183 mg/dL (70-99) 160 mg/dL (70-99) Lactic Acid Level 3.0 mmol/L (0.4-2.0) 2.5 mmol/L (0.4-2.0) 3.4 mmol/L (0.4-2.0) Calcium Level 10.0 mg/dL (8.5-10.1) 10.6 mg/dL (8.5-10.1) Total Bilirubin 0.5 mg/dL (0.2-1.0) Aspartate Amino Transf (AST/SGOT) 13 U/L (15-37) Alanine Aminotransferase (ALT/SGPT) 28 U/L (16-63) Alkaline Phosphatase 66 U/L (46-116) Lactate Dehydrogenase 144 U/L (85-227) Total Protein 7.7 g/dL (6.4-8.2) Albumin 3.9 g/dL (3.4-5.0) Albumin/Globulin Ratio 1.0 (1.0-1.7) Segmented Neutrophils % 85 % (35-66) Band Neutrophils % 3 % (0-9) Lymphocytes % 5 % (24-48) Monocytes % 7 % (0-10) Platelet Estimate Adequate (ADEQUATE) Assessment/Plan Assessment/Plan Acute onset of small bowel obstruction. No prior history of bowel obstruction. NG tube revealed some old coffee-ground blood in the NG aspirate. No prior history of peptic ulcer disease but does have a long history of dyspepsia and heartburn. It is possible he has developed worsening erosive gastritis or peptic disease but his hemoglobin is stable. He was taken to the operating room today and had lysis of adhesions and decompression of his small bowel obstruction. He is recovering presently. Plan: Continue NG tube decompression and postoperative management Protonix Once he has recovered would recommend upper endoscopy In the outpatient setting we will recommend screening colonoscopy. AMANDEEP RAZO MD Sep 17, 2019 16:04
[2019-09-17] MEDS: MORPHINE SULFATE 4 MG/ML VIAL. IV PRN ×2 (17:30→21:33)
[2019-09-17] MEDS: PIPERACILLIN/TAZOBACTAM 2.25 GM in IV NORMAL SALINE 50ML 50 ML IV SCH (21:33)
[2019-09-18 03:00] VITALS: BP 106/61
[2019-09-18 03:31] LABS: BASO % 0 % (0-3); EOS % 0 % (0-3); HEMATOCRIT 35.1 % (39.0-53.0); HEMOGLOBIN 12.1 g/dL (13.0-17.5); LYMPH # 0.5 x10^3/uL (1.0-4.8); LYMPH % 5 % (24-48); MEAN CORPUSCULAR HEMOGLOBIN 32 pg (25-35); MEAN CORPUSCULAR HGB CONC 34 g/dL (31-37); MEAN CORPUSCULAR VOLUME 92 fL (79-100); MONO # 0.9 x10^3/uL (0.0-1.1); MONO % 8 % (0-9); NEUT % 87 % (31-73); PLATELET COUNT 267 x10^3/uL (140-400); RED CELL DISTRIBUTION WIDTH 14.1 % (11.5-14.5); WHITE BLOOD COUNT 10.3 x10^3/uL (4.0-11.0)
[2019-09-18 03:52] LABS: ALBUMIN/GLOBULIN RATIO 0.9 (1.0-1.7); CALCIUM 8.8 mg/dL (8.5-10.1); CREATININE 2.6 mg/dL (0.7-1.3); GFR 25.2; POTASSIUM 4.1 mmol/L (3.5-5.1); TOTAL BILIRUBIN 0.7 mg/dL (0.2-1.0); TOTAL PROTEIN 6.2 g/dL (6.4-8.2)
[2019-09-18] MEDS: PIPERACILLIN/TAZOBACTAM 2.25 GM in IV NORMAL SALINE 50ML 50 ML IV SCH ×3 (05:46→21:22)
[2019-09-18] MEDS: PANTOPRAZOLE IV PUSH 40 MG VIAL. IVP SCH (05:47)
[2019-09-18 07:00] VITALS: BP 112/63
--- NOTE | 2019-09-18 07:36 | NUR ---
Pt. had positive sepsis screen this morning. ICU was paged and orders placed. stat lactic came back 1.9. No further orders given from ICU.
[2019-09-18] MEDS: IV NORMAL SALINE 1000ML BAG 1,000 ML IV SCH ×2 (08:43→17:05)
--- NOTE | 2019-09-18 10:14 | PDOC ---
SHELBY HUGHES [employer] 09/18/19 1014: SURGICAL PROGRESS NOTE Subjective resting pain managed no flatus Vital Signs Vital Signs Date Time Temp Pulse Resp B/P (MAP) Pulse Ox O2 Delivery O2 Flow Rate FiO2 09/18/19 08:00 Room Air 09/18/19 07:00 98.2 95 16 112/63 (79) 99 98.2 09/18/19 03:00 2.0 I&O Intake and Output 09/18/19 06:59 Intake Total 2900 ml Output Total 1845 ml Balance 1055 ml Intake Oral 150 ml IV Total 2750 ml Output Urine Total 350 ml Gastric Drainage Total 1450 ml Estimated Blood Loss 45 ml PATIENT HAS A REDMAN: Yes General: Alert, Cooperative HEENT: Other (NG bilious ) Abdomen: Soft, Other (dressing in place, incisional TTP) Labs Laboratory Tests Test 09/16/19 17:10 09/16/19 20:20 09/17/19 07:58 09/18/19 01:15 White Blood Count 20.1 x10^3/uL (4.0-11.0) 21.9 x10^3/uL (4.0-11.0) 10.3 x10^3/uL (4.0-11.0) Red Blood Count 4.57 x10^6/uL (4.30-5.70) 4.55 x10^6/uL (4.30-5.70) 3.80 x10^6/uL (4.30-5.70) Hemoglobin 14.2 g/dL (13.0-17.5) 14.2 g/dL (13.0-17.5) 12.1 g/dL (13.0-17.5) Hematocrit 41.7 % (39.0-53.0) 41.5 % (39.0-53.0) 35.1 % (39.0-53.0) Mean Corpuscular Volume 91 fL (79-100) 91 fL (79-100) 92 fL (79-100) Mean Corpuscular Hemoglobin 31 pg (25-35) 31 pg (25-35) 32 pg (25-35) Mean Corpuscular Hemoglobin Concent 34 g/dL (31-37) 34 g/dL (31-37) 34 g/dL (31-37) Red Cell Distribution Width 13.9 % (11.5-14.5) 14.2 % (11.5-14.5) 14.1 % (11.5-14.5) Platelet Count 313 x10^3/uL (140-400) 347 x10^3/uL (140-400) 267 x10^3/uL (140-400) Neutrophils (%) (Auto) 95 % (31-73) 91 % (31-73) 87 % (31-73) Lymphocytes (%) (Auto) 2 % (24-48) 3 % (24-48) 5 % (24-48) Monocytes (%) (Auto) 3 % (0-9) 6 % (0-9) 8 % (0-9) Eosinophils (%) (Auto) 0 % (0-3) 0 % (0-3) 0 % (0-3) Basophils (%) (Auto) 0 % (0-3) 0 % (0-3) 0 % (0-3) Neutrophils # (Auto) 19.0 x10^3/uL (1.8-7.7) 20.0 x10^3/uL (1.8-7.7) 9.0 x10^3/uL (1.8-7.7) Lymphocytes # (Auto) 0.4 x10^3/uL (1.0-4.8) 0.6 x10^3/uL (1.0-4.8) 0.5 x10^3/uL (1.0-4.8) Monocytes # (Auto) 0.6 x10^3/uL (0.0-1.1) 1.4 x10^3/uL (0.0-1.1) 0.9 x10^3/uL (0.0-1.1) Eosinophils # (Auto) 0.0 x10^3/uL (0.0-0.7) 0.0 x10^3/uL (0.0-0.7) 0.0 x10^3/uL (0.0-0.7) Basophils # (Auto) 0.0 x10^3/uL (0.0-0.2) 0.0 x10^3/uL (0.0-0.2) 0.0 x10^3/uL (0.0-0.2) Sodium Level 137 mmol/L (136-145) 142 mmol/L (136-145) 143 mmol/L (136-145) Potassium Level 4.6 mmol/L (3.5-5.1) 4.2 mmol/L (3.5-5.1) 4.1 mmol/L (3.5-5.1) Chloride Level 97 mmol/L (98-107) 97 mmol/L (98-107) 102 mmol/L (98-107) Carbon Dioxide Level 31 mmol/L (21-32) 35 mmol/L (21-32) 33 mmol/L (21-32) Anion Gap 9 (6-14) 10 (6-14) 8 (6-14) Blood Urea Nitrogen 37 mg/dL (8-26) 55 mg/dL (8-26) 67 mg/dL (8-26) Creatinine 1.9 mg/dL (0.7-1.3) 2.2 mg/dL (0.7-1.3) 2.6 mg/dL (0.7-1.3) Estimated GFR (Cockcroft-Gault) 36.2 30.6 25.2 BUN/Creatinine Ratio 19 (6-20) 26 (6-20) Glucose Level 183 mg/dL (70-99) 160 mg/dL (70-99) 141 mg/dL (70-99) Lactic Acid Level 3.0 mmol/L (0.4-2.0) 2.5 mmol/L (0.4-2.0) 3.4 mmol/L (0.4-2.0) 1.9 mmol/L (0.4-2.0) Calcium Level 10.0 mg/dL (8.5-10.1) 10.6 mg/dL (8.5-10.1) 8.8 mg/dL (8.5-10.1) Total Bilirubin 0.5 mg/dL (0.2-1.0) 0.7 mg/dL (0.2-1.0) Aspartate Amino Transf (AST/SGOT) 13 U/L (15-37) 13 U/L (15-37) Alanine Aminotransferase (ALT/SGPT) 28 U/L (16-63) 20 U/L (16-63) Alkaline Phosphatase 66 U/L (46-116) 42 U/L (46-116) Lactate Dehydrogenase 144 U/L (85-227) Total Protein 7.7 g/dL (6.4-8.2) 6.2 g/dL (6.4-8.2) Albumin 3.9 g/dL (3.4-5.0) 3.0 g/dL (3.4-5.0) Albumin/Globulin Ratio 1.0 (1.0-1.7) 0.9 (1.0-1.7) Segmented Neutrophils % 85 % (35-66) Band Neutrophils % 3 % (0-9) Lymphocytes % 5 % (24-48) Monocytes % 7 % (0-10) Platelet Estimate Adequate (ADEQUATE) Laboratory Tests Test 09/18/19 01:15 White Blood Count 10.3 x10^3/uL (4.0-11.0) Red Blood Count 3.80 x10^6/uL (4.30-5.70) Hemoglobin 12.1 g/dL (13.0-17.5) Hematocrit 35.1 % (39.0-53.0) Mean Corpuscular Volume 92 fL (79-100) Mean Corpuscular Hemoglobin 32 pg (25-35) Mean Corpuscular Hemoglobin Concent 34 g/dL (31-37) Red Cell Distribution Width 14.1 % (11.5-14.5) Platelet Count 267 x10^3/uL (140-400) Neutrophils (%) (Auto) 87 % (31-73) Lymphocytes (%) (Auto) 5 % (24-48) Monocytes (%) (Auto) 8 % (0-9) Eosinophils (%) (Auto) 0 % (0-3) Basophils (%) (Auto) 0 % (0-3) Neutrophils # (Auto) 9.0 x10^3/uL (1.8-7.7) Lymphocytes # (Auto) 0.5 x10^3/uL (1.0-4.8) Monocytes # (Auto) 0.9 x10^3/uL (0.0-1.1) Eosinophils # (Auto) 0.0 x10^3/uL (0.0-0.7) Basophils # (Auto) 0.0 x10^3/uL (0.0-0.2) Sodium Level 143 mmol/L (136-145) Potassium Level 4.1 mmol/L (3.5-5.1) Chloride Level 102 mmol/L (98-107) Carbon Dioxide Level 33 mmol/L (21-32) Anion Gap 8 (6-14) Blood Urea Nitrogen 67 mg/dL (8-26) Creatinine 2.6 mg/dL (0.7-1.3) Estimated GFR (Cockcroft-Gault) 25.2 BUN/Creatinine Ratio 26 (6-20) Glucose Level 141 mg/dL (70-99) Lactic Acid Level 1.9 mmol/L (0.4-2.0) Calcium Level 8.8 mg/dL (8.5-10.1) Total Bilirubin 0.7 mg/dL (0.2-1.0) Aspartate Amino Transf (AST/SGOT) 13 U/L (15-37) Alanine Aminotransferase (ALT/SGPT) 20 U/L (16-63) Alkaline Phosphatase 42 U/L (46-116) Total Protein 6.2 g/dL (6.4-8.2) Albumin 3.0 g/dL (3.4-5.0) Albumin/Globulin Ratio 0.9 (1.0-1.7) Assessment/Plan s/p xlap, YOANNA continue NG noted cr 2.6--defer to primary RAMAN GRIDER MD 09/18/19 1416: SURGICAL PROGRESS NOTE Assessment/Plan pt seen as above no new surgical recs HSELBY HUGHES APRN Sep 18, 2019 10:14 RAMAN GRIDER MD Sep 18, 2019 14:16
--- NOTE | 2019-09-18 10:26 | NUR ---
New order from Dr. Painter to bladder scan patient and to insert ortega if PVR greater than 300mL. Bladder scan performed by CARBON GRINDER and CARBON GRINDER stated PVR 295mL, notified Dr. Painter, no new orders for ortega at this time.
[2019-09-18] MEDS ORDERED: IV NORMAL SALINE 500ML BAG 500 ML IV ONE (10:30)
--- NOTE | 2019-09-18 10:58 | HP ---
ADMIT DATE: 09/18/2019 HISTORY OF PRESENT ILLNESS: The patient is a 59-year-old male patient, who presented to the Emergency Room of [facility] with a complaint of generalized abdominal pain and cramping that started the night before admission. The patient states that he has been feeling a lot of bloating in his abdomen, is much more distended than usual. He states at its worst, the pain is about 7/10. By the time he arrived to the Emergency Room, it was about 3/10. He does indicate that he was nauseated the night before, but no nausea when he arrived. He denied any other complaint. He was extensively investigated in the Emergency Room and his lab work showed he has leukocytosis with a white cell count of 14,900. Also his BUN and creatinine were elevated at 29 and 2. Lactic acid was high at 2.9 and calcium was slightly elevated at 10.4. His CT scan of the abdomen and pelvis showed that the patient has bibasilar linear atelectasis present. Liver, spleen, pancreas, adrenal glands are normal. Gallbladder fossa is unremarkable. Moderate left renal atrophy, right kidney is unremarkable. Stomach is distended with fluid radiopaque density, which appears to represents medication pill is noted within the gastric pyloric region. Debris is somewhat high density is noted within the dependent aspect of the stomach. Small bowel is distended with transition in the right lower quadrant. His appendix was normal. Minimal diverticulosis is present. Radiopaque density within the cecum is present and also appears to represent an undigested medication pill. Appendix not definitely delineated. No inflammatory changes about the cecum. Circumferential wall thickening of the urinary bladder is present. Moderate disk space narrowing at L4-L5 is present. Concentric disk bulge at L5-S1. Left inguinal hernia identified, mild prostatomegaly. Impression: Has small bowel obstruction with transition within the right lower quadrant, distal decompressed small bowel, small bowel loops and minimal diverticulosis. Therefore, the patient was kept n.p.o. Had an NG tube placed and was transferred to [facility] for further evaluation and treatment. PAST MEDICAL HISTORY: Significant for hypertension, hyperlipidemia, chronic kidney disease, and disk bulge at L4-L5, for which he had received spinal steroid epidural injection 3 times. PAST SURGICAL HISTORY: Significant for umbilical hernia repair in 2008. He has trauma to his left eye. ALLERGIES: He has no known drug allergies. MEDICATIONS: He is currently on following medications: He is on omeprazole, magnesium 20 mg once a day. He is also on olmesartan/hydrochlorothiazide, but does not know the exact dose. FAMILY HISTORY: He has 1 brother and 1 sister, both older. His father at the age of 87 because of congestive heart failure. His mother at the age of 63 in a house fire. SOCIAL HISTORY: He is single, never , has no children. Does not smoke. Does not drink alcohol or use recreational drugs. 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 REVIEW OF SYSTEMS: As per history of present illness. PHYSICAL EXAMINATION: GENERAL: On arrival to the Emergency Room, he looked well and was clearly in no apparent respiratory distress. There was no pallor, jaundice, cyanosis or thyromegaly. No jugular venous distension. No lower limb edema. VITAL SIGNS: His heart rate was 110, blood pressure was 132/104, temperature was 98.2, respiratory rate was 16, and oxygen saturation was 98%. HEAD, EYES, EARS, NOSE AND THROAT: Showed normocephalic, atraumatic. NECK: Supple. HEART: Showed normal first and second heart sounds. No gallop or murmur. ABDOMEN: Distended with left sided and mid abdominal tenderness. Bowel sounds were normal. NEUROLOGIC: He was awake, alert x 3 with no focal deficit. 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 His lab work showed a white cell count 14,900; hemoglobin 14.9; hematocrit 42; MCV 90 and platelet count of 280,000. His chemistry showed a serum sodium 139, potassium 4.2, chloride 97, bicarbonate 33, anion gap of 9, BUN 29, creatinine 2, estimated GFR was 34 mL per minute. His glucose 164. Calcium was 10.4. Lactic acid was 2.9. Total bilirubin, AST, ALT, alkaline phosphatase were normal. Total protein was 7.9. Albumin was 4.3. Lipase was 74. Urinalysis was essentially unremarkable. We will keep the patient n.p.o., continue with NG tube to suction, IV fluid, pain management as well as antiemetic. We will consult the Surgical team for definitive surgical treatment. ANNE MORALES MD DR: Cornelio JOB#: [id number] / [id number]
[2019-09-18 11:00] VITALS: BP 107/71
--- NOTE | 2019-09-18 11:55 | PN ---
DATE: 09/18/2019 SUBJECTIVE: The patient was transferred from [facility] Room with small-bowel obstruction. He was seen in consultation by the surgical team and underwent laparoscopic converted to open exploration with lysis of adhesions for small-bowel obstruction. Lactic acidosis with adhesion in the mid ileum. His white cell count was high at 21,900 and I did start him on Zosyn. His chemistry showed that his creatinine has risen slightly to 2.2 from 2. We did increase his IV fluids. When I saw him today, he was resting slightly propped up in bed, in no apparent respiratory distress. He continued to have some mild abdominal pain and so far has no bowel movement and did not pass any gas. He continued to have an NG tube to intermittent suction. PHYSICAL EXAMINATION: GENERAL: When I examined him, he looked well and was clearly in no apparent respiratory distress. No pallor, jaundice, cyanosis, or thyromegaly. No jugular venous distension. No lower limb edema. VITAL SIGNS: His heart rate was 95, blood pressure is 112/63, temperature 98.2, respiratory rate was 16 and oxygen saturation was 99%. HEAD, EYES, EARS, NOSE AND THROAT: Showed normocephalic, atraumatic. He has NG tube to intermittent suction. NECK: Supple. HEART: Showed normal first and second heart sounds. No gallop or murmur. CHEST: Clear to auscultation. No crepitation or rhonchi. ABDOMEN: Distended, soft and there is no guarding or rigidity. No organomegaly. Bowel sounds are sluggish. 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 He moves extremities without difficulty. His intake over the last 24 hours was 1600 and output was 5600. LABORATORY DATA: His lab work this morning showed serum sodium of 143, potassium 4.1, chloride 102, bicarbonate 33, anion gap of 8, BUN 67, creatinine 2.6, estimated GFR was 25 mL per minute. His glucose 141, calcium was 8.9. His lactic acid is down to 1.9. Total bilirubin, AST, ALT and alkaline phosphatase were normal. Total protein 6.2. Albumin 3. ASSESSMENT: 1. Small-bowel obstruction, status post laparoscopic converted to open exploration with lysis of adhesions for small-bowel obstruction. Lactic acidosis and adhesions in the mid ileum. 2. Other medical problems include acute on chronic kidney injury. 3. Hypertension. 4. Hyperlipidemia. PLAN: Scan his bladder and make sure that he is not retaining urine and increase his IV fluid to 150 mL per hour and consult nephrology team. ANNE MORALES MD DR: TAYO/sven JOB#: [id number] / [id number]
--- NOTE | 2019-09-18 12:16 | PDOC ---
Subjective: Subjective: No flatus, has abd discomfort. Objective: Vital Signs: Vital Signs Date Time Temp Pulse Resp B/P (MAP) Pulse Ox O2 Delivery O2 Flow Rate FiO2 09/18/19 11:00 97.9 103 18 107/71 (83) 96 Room Air 97.9 09/18/19 03:00 2.0 Labs: Laboratory Tests Test 09/18/19 01:15 White Blood Count 10.3 x10^3/uL Red Blood Count 3.80 x10^6/uL Hemoglobin 12.1 g/dL Hematocrit 35.1 % Mean Corpuscular Volume 92 fL Mean Corpuscular Hemoglobin 32 pg Mean Corpuscular Hemoglobin Concent 34 g/dL Red Cell Distribution Width 14.1 % Platelet Count 267 x10^3/uL Neutrophils (%) (Auto) 87 % Lymphocytes (%) (Auto) 5 % Monocytes (%) (Auto) 8 % Eosinophils (%) (Auto) 0 % Basophils (%) (Auto) 0 % Neutrophils # (Auto) 9.0 x10^3/uL Lymphocytes # (Auto) 0.5 x10^3/uL Monocytes # (Auto) 0.9 x10^3/uL Eosinophils # (Auto) 0.0 x10^3/uL Basophils # (Auto) 0.0 x10^3/uL Sodium Level 143 mmol/L Potassium Level 4.1 mmol/L Chloride Level 102 mmol/L Carbon Dioxide Level 33 mmol/L Anion Gap 8 Blood Urea Nitrogen 67 mg/dL Creatinine 2.6 mg/dL Estimated GFR (Cockcroft-Gault) 25.2 BUN/Creatinine Ratio 26 Glucose Level 141 mg/dL Lactic Acid Level 1.9 mmol/L Calcium Level 8.8 mg/dL Total Bilirubin 0.7 mg/dL Aspartate Amino Transf (AST/SGOT) 13 U/L Alanine Aminotransferase (ALT/SGPT) 20 U/L Alkaline Phosphatase 42 U/L Total Protein 6.2 g/dL Albumin 3.0 g/dL Albumin/Globulin Ratio 0.9 PE: GEN: NAD HEENT: NG w/ some dark bilious fluid in canister LUNGS: room air ABD: soft NEURO/PSYCH: A & O 3 A/P: SBO s/p open exploration w/ YOANNA Coffee-ground blood in NG aspirate H/o dyspepsia, heartburn MARISOL -- Hgb stable. Continue PPI. Outpt EGD and screening colonoscopy. JOSE ROLLINS Sep 18, 2019 12:16
--- NOTE | 2019-09-18 13:19 | PDOC2 ---
CONSULT Date of Consult Date of Consult DATE: 09/18/19 TIME: 13:15 Reason for Consult Reason for Consult: MARISOL Referring Physician Referring Physician: CARMEN Identification/Chief Complaint Chief Complaint ABD PAIN Source Source: Chart review, Patient History of Present Illness Reason for Visit: THIS IS A 59 YR OLD PT WHO PRESENTED TO THE ER [place] WITH COMPLAINTS OF ABD PAIN AND N/V. HAS NOT HAD MUCH TO EAT SINCE SUNDAY. IMAGING C/W SBO AND CURRENTLY TRANSFERRED HERE AND NOW HAS AN NGT. HE IS NOTED TO HAVE MARISOL WITH CR OF 2.6. NO CKD NOTED. NO HX OF ANY KIDNEY OR BLADDER SURGERIES HEMATURIA DYSURIA OR FREQUENCY NOTED. NO ISSUES WITH EMPTYING HIS BLADDER. NO NEPHROTOXINS NOTED. ALSO HAS LEUCOCYTOSIS. GI AND SURGERY ARE FOLLOWING THE PATIENT Past Medical History Cardiovascular: HTN CENTRAL NERVOUS SYSTEM: CVA GI: GERD Musculoskeletal: Osteoarthritis Rheumatologic: No pertinent hx Infectious disease: No pertinent hx ENT: No pertinent hx Renal/: No pertinent hx Past Surgical History Past Surgical History: Hernia Repair (umbilical, eye surgery) Family History Family History: No Significant Social History No ALCOHOL: none Drugs: None Lives: with Family Current Medications Current Medications Current Medications Fentanyl Citrate (Fentanyl 2ml Vial) 50 mcg PRN Q3HRS PRN IVP PAIN Last admin istered on 09/17/19at 15:34; Start 09/16/19 at 15:45; Stop 09/17/19 at 17:07; Status DC Sodium Chloride 1,000 ml @ 150 mls/hr Q6H40M IV Last administered on 09/18/19at 08:43; Start 09/16/19 at 15:45 Lidocaine HCl (Glydo (Lidocaine) Jelly) 2 iván 1X ONCE MM Last administered on 09/16/19at 16:30; Start 09/16/19 at 16:30; Stop 09/16/19 at 16:31; Status DC Benzocaine (Hurricaine One) 1 spray 1X ONCE MM Last administered on 09/16/19at 16:15; Start 09/16/19 at 16:15; Stop 09/16/19 at 16:24; Status DC Lidocaine HCl (Glydo (Lidocaine) Jelly) 2 iván 1X ONCE MM ; Start 09/16/19 at 16:15; Stop 09/16/19 at 16:16; Status UNV Throat Lozenges (Cepacol Sore Throat Lozenge) 1 ted PRN Q2HRS PRN PO SORE THROAT Last administered on 09/17/19at 06:07; Start 09/16/19 at 17:45; Stop 09/17/19 at 09:23; Status DC Phenol (Chloraseptic) 1 spray PRN Q2HR PRN PO SORE THROAT; Start 09/16/19 at 17:45 Throat Lozenges (Cepacol Sore Throat Lozenge) 1 ted PRN Q2HRS PRN PO SORE THROAT; Start 09/16/19 at 19:00 Pantoprazole Sodium (PROTONIX VIAL for IV PUSH) 40 mg DAILYAC IVP Last administered on 09/18/19at 05:47; Start 09/17/19 at 07:30 Piperacillin Sod/ Tazobactam Sod 3.375 gm/Sodium Chloride 50 ml @ 100 mls/hr 1X ONCE IV Last administered on 09/17/19at 11:05; Start 09/17/19 at 09:30; Stop 09/17/19 at 09:59; Status DC Fentanyl Citrate (Fentanyl 2ml Vial) 100 mcg STK-MED ONCE .ROUTE ; Start 09/17/19 at 09:30; Stop 09/17/19 at 09:30; Status DC Glycopyrrolate (Robinul) 1 mg STK-MED ONCE .ROUTE ; Start 09/17/19 at 09:30; Stop 09/17/19 at 09:30; Status DC Neostigmine Methylsulfate (Neostigmine Methylsulfate) 5 mg STK-MED ONCE .ROUTE ; Start 09/17/19 at 09:30; Stop 09/17/19 at 09:30; Status DC Rocuronium [place] (Zemuron) 50 mg STK-MED ONCE .ROUTE ; Start 09/17/19 at 09:30; Stop 09/17/19 at 09:30; Status DC Desflurane (Suprane) 60 ml STK-MED ONCE IH ; Start 09/17/19 at 09:30; Stop 09/17/19 at 09:31; Status DC Propofol 20 ml @ As Directed STK-MED ONCE IV ; Start 09/17/19 at 09:30; Stop 09/17/19 at 09:31; Status DC Lidocaine HCl (Lidocaine Pf 2% Vial) 5 ml STK-MED ONCE .ROUTE ; Start 09/17/19 at 09:30; Stop 09/17/19 at 09:31; Status DC Ondansetron HCl (Zofran) 4 mg STK-MED ONCE .ROUTE ; Start 09/17/19 at 09:30; Stop 09/17/19 at 09:31; Status DC Dexamethasone Sodium Phosphate (Decadron) 4 mg STK-MED ONCE .ROUTE ; Start 09/17/19 at 09:30; Stop 09/17/19 at 09:31; Status DC Ondansetron HCl (Zofran) 4 mg PRN Q6HRS PRN IV NAUSEA/VOMITING; Start 09/17/19 at 10:00; Stop 09/17/19 at 20:00; Status DC Fentanyl Citrate (Fentanyl 2ml Vial) 25 mcg PRN Q5MIN PRN IV MILD PAIN 1-3; Start 09/17/19 at 10:00; Stop 09/17/19 at 20:00; Status DC Fentanyl Citrate (Fentanyl 2ml Vial) 50 mcg PRN Q5MIN PRN IV MODERATE TO SEVERE PAIN Last administered on 09/17/19at 13:25; Start 09/17/19 at 10:00; Stop 09/17/19 at 20:00; Status DC Morphine Sulfate (Morphine Sulfate) 1 mg PRN Q10MIN PRN IV SEVERE PAIN 7-10; Start 09/17/19 at 10:00; Stop 09/17/19 at 20:00; Status DC Ringer's Solution 1,000 ml @ 30 mls/hr Q24H IV ; Start 09/17/19 at 09:52; Stop 09/17/19 at 21:51; Status DC Lidocaine HCl (Xylocaine-Mpf 1% 2ml Vial) 2 ml PRN 1X PRN ID PRIOR TO IV START; Start 09/17/19 at 10:00; Stop 09/17/19 at 20:00; Status DC Hydromorphone HCl (Dilaudid) 0.5 mg PRN Q10MIN PRN IV SEV PAIN, Second choice; Start 09/17/19 at 10:00; Stop 09/17/19 at 20:00; Status DC Prochlorperazine Edisylate (Compazine) 5 mg PACU PRN PRN IV NAUSEA, MRX1; Start 09/17/19 at 10:00; Stop 09/17/19 at 20:00; Status DC Bupivacaine HCl/ Epinephrine Bitart (Sensorcain-Epi 0.5%-1:416081 Mpf) 30 ml 1X ONCE INJ Last administered on 09/17/19at 11:34; Start 09/17/19 at 11:15; Stop 09/17/19 at 11:16; Status DC Phenylephrine HCl (PHENYLEPHRINE in 0.9% NACL PF) 1 mg STK-MED ONCE IV ; Start 09/17/19 at 11:28; Stop 09/17/19 at 11:28; Status DC Phenylephrine HCl (PHENYLEPHRINE in 0.9% NACL PF) 1 mg STK-MED ONCE IV ; Start 09/17/19 at 11:43; Stop 09/17/19 at 11:44; Status DC Phenylephrine HCl (PHENYLEPHRINE in 0.9% NACL PF) 1 mg STK-MED ONCE IV ; Start 09/17/19 at 12:21; Stop 09/17/19 at 12:21; Status DC Fentanyl Citrate (Fentanyl 2ml Vial) 100 mcg STK-MED ONCE .ROUTE ; Start 09/17/19 at 12:21; Stop 09/17/19 at 12:22; Status DC Lidocaine HCl (Lidocaine Pf 2% Vial) 5 ml STK-MED ONCE .ROUTE ; Start 09/17/19 at 12:43; Stop 09/17/19 at 12:43; Status DC Fentanyl Citrate (Fentanyl 2ml Vial) 100 mcg STK-MED ONCE .ROUTE ; Start 09/17/19 at 13:22; Stop 09/17/19 at 13:23; Status DC Morphine Sulfate (Morphine Sulfate) 4 mg PRN Q2HR PRN IV PAIN Last administered on 09/17/19at 21:33; Start 09/17/19 at 17:15 Piperacillin Sod/ Tazobactam Sod 2.25 gm/Sodium Chloride 50 ml @ 100 mls/hr Q8HRS IV Last administered on 09/18/19at 05:46; Start 09/17/19 at 22:00 Sodium Chloride 500 ml @ 500 mls/hr 1X ONCE IV Last administered on 09/18/19at 10:40; Start 09/18/19 at 10:30; Stop 09/18/19 at 11:29; Status DC Active Scripts Active Reported Atorvastatin Calcium 20 Mg Tablet 1 Tab PO DAILY Micardis Hct 80-25 Mg Tablet (Telmisartan/Hydrochlorothiazid) 1 Each Tablet 1 Tab PO DAILY Allergies Allergies: Coded Allergies: No Known Drug Allergies (Unverified , 09/16/19) ROS General: YES: Fatigue, Malaise, Appetite PSYCHOLOGICAL ROS: YES: Anxiety Eyes: Yes Decreased vision HEENT: YES: Heacaches ALLERGY AND IMMUNOLOGY: YES: Seasonal Allergies Respiratory: YES: Cough Gastrointestinal: Yes Nausea, Yes Vomiting, Yes Abdominal Pain, Yes Constipation Genitourinary: YES Other (OCC NOCTURIA) Musculoskeletal: Yes Muscular Weakness Neurological: Yes Weakness Skin: Yes Dry Skin Physical Exam General: Alert, Oriented X3, Cooperative, No acute distress HEENT: Atraumatic, EOMI, Mucous membr. moist/pink Lungs: Clear to auscultation, Normal air movement Heart: Regular rate Abdomen: Soft, Other (NGT IN PLACE, HYPOACTIVE) Extremities: No clubbing Skin: No breakdown Neuro: Normal speech, Sensation intact Psych/Mental Status: Mental status NL, Mood NL MUSCULOSKELETAL: No joint tenderness, No deformity Vitals VITALS Vital Signs Date Time Temp Pulse Resp B/P (MAP) Pulse Ox O2 Delivery O2 Flow Rate FiO2 09/18/19 11:00 97.9 103 18 107/71 (83) 96 Room Air 97.9 09/18/19 03:00 2.0 Labs Labs Laboratory Tests Test 09/16/19 17:10 09/16/19 20:20 09/17/19 07:58 09/18/19 01:15 White Blood Count 20.1 x10^3/uL (4.0-11.0) 21.9 x10^3/uL (4.0-11.0) 10.3 x10^3/uL (4.0-11.0) Red Blood Count 4.57 x10^6/uL (4.30-5.70) 4.55 x10^6/uL (4.30-5.70) 3.80 x10^6/uL (4.30-5.70) Hemoglobin 14.2 g/dL (13.0-17.5) 14.2 g/dL (13.0-17.5) 12.1 g/dL (13.0-17.5) Hematocrit 41.7 % (39.0-53.0) 41.5 % (39.0-53.0) 35.1 % (39.0-53.0) Mean Corpuscular Volume 91 fL (79-100) 91 fL (79-100) 92 fL (79-100) Mean Corpuscular Hemoglobin 31 pg (25-35) 31 pg (25-35) 32 pg (25-35) Mean Corpuscular Hemoglobin Concent 34 g/dL (31-37) 34 g/dL (31-37) 34 g/dL (31-37) Red Cell Distribution Width 13.9 % (11.5-14.5) 14.2 % (11.5-14.5) 14.1 % (11.5-14.5) Platelet Count 313 x10^3/uL (140-400) 347 x10^3/uL (140-400) 267 x10^3/uL (140-400) Neutrophils (%) (Auto) 95 % (31-73) 91 % (31-73) 87 % (31-73) Lymphocytes (%) (Auto) 2 % (24-48) 3 % (24-48) 5 % (24-48) Monocytes (%) (Auto) 3 % (0-9) 6 % (0-9) 8 % (0-9) Eosinophils (%) (Auto) 0 % (0-3) 0 % (0-3) 0 % (0-3) Basophils (%) (Auto) 0 % (0-3) 0 % (0-3) 0 % (0-3) Neutrophils # (Auto) 19.0 x10^3/uL (1.8-7.7) 20.0 x10^3/uL (1.8-7.7) 9.0 x10^3/uL (1.8-7.7) Lymphocytes # (Auto) 0.4 x10^3/uL (1.0-4.8) 0.6 x10^3/uL (1.0-4.8) 0.5 x10^3/uL (1.0-4.8) Monocytes # (Auto) 0.6 x10^3/uL (0.0-1.1) 1.4 x10^3/uL (0.0-1.1) 0.9 x10^3/uL (0.0-1.1) Eosinophils # (Auto) 0.0 x10^3/uL (0.0-0.7) 0.0 x10^3/uL (0.0-0.7) 0.0 x10^3/uL (0.0-0.7) Basophils # (Auto) 0.0 x10^3/uL (0.0-0.2) 0.0 x10^3/uL (0.0-0.2) 0.0 x10^3/uL (0.0-0.2) Sodium Level 137 mmol/L (136-145) 142 mmol/L (136-145) 143 mmol/L (136-145) Potassium Level 4.6 mmol/L (3.5-5.1) 4.2 mmol/L (3.5-5.1) 4.1 mmol/L (3.5-5.1) Chloride Level 97 mmol/L (98-107) 97 mmol/L (98-107) 102 mmol/L (98-107) Carbon Dioxide Level 31 mmol/L (21-32) 35 mmol/L (21-32) 33 mmol/L (21-32) Anion Gap 9 (6-14) 10 (6-14) 8 (6-14) Blood Urea Nitrogen 37 mg/dL (8-26) 55 mg/dL (8-26) 67 mg/dL (8-26) Creatinine 1.9 mg/dL (0.7-1.3) 2.2 mg/dL (0.7-1.3) 2.6 mg/dL (0.7-1.3) Estimated GFR (Cockcroft-Gault) 36.2 30.6 25.2 BUN/Creatinine Ratio 19 (6-20) 26 (6-20) Glucose Level 183 mg/dL (70-99) 160 mg/dL (70-99) 141 mg/dL (70-99) Lactic Acid Level 3.0 mmol/L (0.4-2.0) 2.5 mmol/L (0.4-2.0) 3.4 mmol/L (0.4-2.0) 1.9 mmol/L (0.4-2.0) Calcium Level 10.0 mg/dL (8.5-10.1) 10.6 mg/dL (8.5-10.1) 8.8 mg/dL (8.5-10.1) Total Bilirubin 0.5 mg/dL (0.2-1.0) 0.7 mg/dL (0.2-1.0) Aspartate Amino Transf (AST/SGOT) 13 U/L (15-37) 13 U/L (15-37) Alanine Aminotransferase (ALT/SGPT) 28 U/L (16-63) 20 U/L (16-63) Alkaline Phosphatase 66 U/L (46-116) 42 U/L (46-116) Lactate Dehydrogenase 144 U/L (85-227) Total Protein 7.7 g/dL (6.4-8.2) 6.2 g/dL (6.4-8.2) Albumin 3.9 g/dL (3.4-5.0) 3.0 g/dL (3.4-5.0) Albumin/Globulin Ratio 1.0 (1.0-1.7) 0.9 (1.0-1.7) Segmented Neutrophils % 85 % (35-66) Band Neutrophils % 3 % (0-9) Lymphocytes % 5 % (24-48) Monocytes % 7 % (0-10) Platelet Estimate Adequate (ADEQUATE) Laboratory Tests Test 09/18/19 01:15 White Blood Count 10.3 x10^3/uL (4.0-11.0) Red Blood Count 3.80 x10^6/uL (4.30-5.70) Hemoglobin 12.1 g/dL (13.0-17.5) Hematocrit 35.1 % (39.0-53.0) Mean Corpuscular Volume 92 fL (79-100) Mean Corpuscular Hemoglobin 32 pg (25-35) Mean Corpuscular Hemoglobin Concent 34 g/dL (31-37) Red Cell Distribution Width 14.1 % (11.5-14.5) Platelet Count 267 x10^3/uL (140-400) Neutrophils (%) (Auto) 87 % (31-73) Lymphocytes (%) (Auto) 5 % (24-48) Monocytes (%) (Auto) 8 % (0-9) Eosinophils (%) (Auto) 0 % (0-3) Basophils (%) (Auto) 0 % (0-3) Neutrophils # (Auto) 9.0 x10^3/uL (1.8-7.7) Lymphocytes # (Auto) 0.5 x10^3/uL (1.0-4.8) Monocytes # (Auto) 0.9 x10^3/uL (0.0-1.1) Eosinophils # (Auto) 0.0 x10^3/uL (0.0-0.7) Basophils # (Auto) 0.0 x10^3/uL (0.0-0.2) Sodium Level 143 mmol/L (136-145) Potassium Level 4.1 mmol/L (3.5-5.1) Chloride Level 102 mmol/L (98-107) Carbon Dioxide Level 33 mmol/L (21-32) Anion Gap 8 (6-14) Blood Urea Nitrogen 67 mg/dL (8-26) Creatinine 2.6 mg/dL (0.7-1.3) Estimated GFR (Cockcroft-Gault) 25.2 BUN/Creatinine Ratio 26 (6-20) Glucose Level 141 mg/dL (70-99) Lactic Acid Level 1.9 mmol/L (0.4-2.0) Calcium Level 8.8 mg/dL (8.5-10.1) Total Bilirubin 0.7 mg/dL (0.2-1.0) Aspartate Amino Transf (AST/SGOT) 13 U/L (15-37) Alanine Aminotransferase (ALT/SGPT) 20 U/L (16-63) Alkaline Phosphatase 42 U/L (46-116) Total Protein 6.2 g/dL (6.4-8.2) Albumin 3.0 g/dL (3.4-5.0) Albumin/Globulin Ratio 0.9 (1.0-1.7) Assessment/Plan Assessment/Plan IMP SBO DEHYDRATION MARISOL PLAN HYDRATION PPN NGT WILL FOLLOW CRISTEL MANZANO MD Sep 18, 2019 13:19
--- NOTE | 2019-09-18 13:43 | NUR ---
SW following. Discussed with RN, pt is from home. NPO, kidney function declining. PT/OT has been ordered. SW will continue to follow.
[2019-09-18] MEDS: AMINO AC 3%/ELECTROLYTE/GLYCER 1,000 ML IV SCH (13:46)
[2019-09-18 15:00] VITALS: BP 128/66
[2019-09-18 19:35] VITALS: BP 125/72
[2019-09-18] MEDS: MORPHINE SULFATE 4 MG/ML VIAL. IV PRN (21:22)
[2019-09-18 23:15] VITALS: BP 118/66
[2019-09-19] MEDS: AMINO AC 3%/ELECTROLYTE/GLYCER 1,000 ML IV SCH ×2 (01:51→13:54)
[2019-09-19 03:50] VITALS: BP 113/71
[2019-09-19] MEDS: PIPERACILLIN/TAZOBACTAM 2.25 GM in IV NORMAL SALINE 50ML 50 ML IV SCH ×3 (05:42→22:00)
[2019-09-19] MEDS: IV NORMAL SALINE 1000ML BAG 1,000 ML IV SCH ×2 (05:43→21:01)
--- NOTE | 2019-09-19 05:45 | NUR ---
Bladder scanned this morning and pt. is retaining 141 cc of urine. Will monitor.
[2019-09-19 07:00] VITALS: BP 127/77
[2019-09-19 07:56] LABS: HEMATOCRIT 29.6 % (39.0-53.0); HEMOGLOBIN 10.2 g/dL (13.0-17.5); RED BLOOD COUNT 3.2 x10^6/uL (4.30-5.70); WHITE BLOOD COUNT 6.2 x10^3/uL (4.0-11.0)
[2019-09-19 08:34] LABS: MAGNESIUM 2.3 mg/dL (1.8-2.4); PHOSPHORUS 2.7 mg/dL (2.6-4.7)
[2019-09-19 08:41] LABS: ALBUMIN 2.5 g/dL (3.4-5.0); ALBUMIN/GLOBULIN RATIO 0.7 (1.0-1.7); CALCIUM 8.4 mg/dL (8.5-10.1); CREATININE 1.9 mg/dL (0.7-1.3); GFR 36.2; POTASSIUM 3.8 mmol/L (3.5-5.1); TOTAL BILIRUBIN 0.5 mg/dL (0.2-1.0); TOTAL PROTEIN 5.9 g/dL (6.4-8.2)
[2019-09-19] MEDS: PANTOPRAZOLE IV PUSH 40 MG VIAL. IVP SCH (09:34)
--- NOTE | 2019-09-19 10:01 | PDOC ---
SHELBY HUGHES FIRE CONTROL TECHNICIAN B 09/19/19 1001: SURGICAL PROGRESS NOTE Subjective resting pain managed no n/v no flatus yet Vital Signs Vital Signs Date Time Temp Pulse Resp B/P (MAP) Pulse Ox O2 Delivery O2 Flow Rate FiO2 09/19/19 08:00 Nasal Cannula 2.0 09/19/19 07:00 97.7 88 18 127/77 (94) 94 97.7 I&O Intake and Output 09/19/19 07:00 Output Total 1625 ml Balance -1625 ml Output Urine Total 1175 ml Gastric Drainage Total 250 ml Drainage Total 200 ml # Voids 3 General: Alert, Oriented X3, Cooperative Abdomen: Soft, Other (ND, incision c/d/i, no erythema ) Labs Laboratory Tests Test 09/18/19 01:15 09/19/19 07:30 White Blood Count 10.3 x10^3/uL (4.0-11.0) 6.2 x10^3/uL (4.0-11.0) Red Blood Count 3.80 x10^6/uL (4.30-5.70) 3.20 x10^6/uL (4.30-5.70) Hemoglobin 12.1 g/dL (13.0-17.5) 10.2 g/dL (13.0-17.5) Hematocrit 35.1 % (39.0-53.0) 29.6 % (39.0-53.0) Mean Corpuscular Volume 92 fL (79-100) 93 fL (79-100) Mean Corpuscular Hemoglobin 32 pg (25-35) 32 pg (25-35) Mean Corpuscular Hemoglobin Concent 34 g/dL (31-37) 35 g/dL (31-37) Red Cell Distribution Width 14.1 % (11.5-14.5) 14.0 % (11.5-14.5) Platelet Count 267 x10^3/uL (140-400) 200 x10^3/uL (140-400) Neutrophils (%) (Auto) 87 % (31-73) Lymphocytes (%) (Auto) 5 % (24-48) Monocytes (%) (Auto) 8 % (0-9) Eosinophils (%) (Auto) 0 % (0-3) Basophils (%) (Auto) 0 % (0-3) Neutrophils # (Auto) 9.0 x10^3/uL (1.8-7.7) Lymphocytes # (Auto) 0.5 x10^3/uL (1.0-4.8) Monocytes # (Auto) 0.9 x10^3/uL (0.0-1.1) Eosinophils # (Auto) 0.0 x10^3/uL (0.0-0.7) Basophils # (Auto) 0.0 x10^3/uL (0.0-0.2) Sodium Level 143 mmol/L (136-145) 140 mmol/L (136-145) Potassium Level 4.1 mmol/L (3.5-5.1) 3.8 mmol/L (3.5-5.1) Chloride Level 102 mmol/L (98-107) 103 mmol/L (98-107) Carbon Dioxide Level 33 mmol/L (21-32) 29 mmol/L (21-32) Anion Gap 8 (6-14) 8 (6-14) Blood Urea Nitrogen 67 mg/dL (8-26) 56 mg/dL (8-26) Creatinine 2.6 mg/dL (0.7-1.3) 1.9 mg/dL (0.7-1.3) Estimated GFR (Cockcroft-Gault) 25.2 36.2 BUN/Creatinine Ratio 26 (6-20) 29 (6-20) Glucose Level 141 mg/dL (70-99) 125 mg/dL (70-99) Lactic Acid Level 1.9 mmol/L (0.4-2.0) Calcium Level 8.8 mg/dL (8.5-10.1) 8.4 mg/dL (8.5-10.1) Total Bilirubin 0.7 mg/dL (0.2-1.0) 0.5 mg/dL (0.2-1.0) Aspartate Amino Transf (AST/SGOT) 13 U/L (15-37) 12 U/L (15-37) Alanine Aminotransferase (ALT/SGPT) 20 U/L (16-63) 15 U/L (16-63) Alkaline Phosphatase 42 U/L (46-116) 44 U/L (46-116) Total Protein 6.2 g/dL (6.4-8.2) 5.9 g/dL (6.4-8.2) Albumin 3.0 g/dL (3.4-5.0) 2.5 g/dL (3.4-5.0) Albumin/Globulin Ratio 0.9 (1.0-1.7) 0.7 (1.0-1.7) Phosphorus Level 2.7 mg/dL (2.6-4.7) Magnesium Level 2.3 mg/dL (1.8-2.4) Laboratory Tests Test 09/19/19 07:30 White Blood Count 6.2 x10^3/uL (4.0-11.0) Red Blood Count 3.20 x10^6/uL (4.30-5.70) Hemoglobin 10.2 g/dL (13.0-17.5) Hematocrit 29.6 % (39.0-53.0) Mean Corpuscular Volume 93 fL (79-100) Mean Corpuscular Hemoglobin 32 pg (25-35) Mean Corpuscular Hemoglobin Concent 35 g/dL (31-37) Red Cell Distribution Width 14.0 % (11.5-14.5) Platelet Count 200 x10^3/uL (140-400) Sodium Level 140 mmol/L (136-145) Potassium Level 3.8 mmol/L (3.5-5.1) Chloride Level 103 mmol/L (98-107) Carbon Dioxide Level 29 mmol/L (21-32) Anion Gap 8 (6-14) Blood Urea Nitrogen 56 mg/dL (8-26) Creatinine 1.9 mg/dL (0.7-1.3) Estimated GFR (Cockcroft-Gault) 36.2 BUN/Creatinine Ratio 29 (6-20) Glucose Level 125 mg/dL (70-99) Calcium Level 8.4 mg/dL (8.5-10.1) Phosphorus Level 2.7 mg/dL (2.6-4.7) Magnesium Level 2.3 mg/dL (1.8-2.4) Total Bilirubin 0.5 mg/dL (0.2-1.0) Aspartate Amino Transf (AST/SGOT) 12 U/L (15-37) Alanine Aminotransferase (ALT/SGPT) 15 U/L (16-63) Alkaline Phosphatase 44 U/L (46-116) Total Protein 5.9 g/dL (6.4-8.2) Albumin 2.5 g/dL (3.4-5.0) Albumin/Globulin Ratio 0.7 (1.0-1.7) Assessment/Plan clamp NG noted Cr--renal following, improved today RAMAN GRIDER MD 09/19/19 1358: SURGICAL PROGRESS NOTE Assessment/Plan pt seen up to chair looks comfortable NG trial 3h off, 1h on SHELBY HUGHES APRN Sep 19, 2019 10:01 RAMAN GRIDER MD Sep 19, 2019 13:58
--- NOTE | 2019-09-19 10:35 | NUR ---
SW following. Discussed with RN, pt NPO, NG tube, PT/OT ordered. SW will continue to follow.
[2019-09-19 11:00] VITALS: BP 134/79
--- NOTE | 2019-09-19 12:01 | PDOC ---
Subjective: Subjective: No flatus but feels gurgling. NG clamped, was up to walk w/ therapy. Objective: Vital Signs: Vital Signs Date Time Temp Pulse Resp B/P (MAP) Pulse Ox O2 Delivery O2 Flow Rate FiO2 09/19/19 08:00 Nasal Cannula 2.0 09/19/19 07:00 97.7 88 18 127/77 (94) 94 97.7 Labs: Laboratory Tests Test 09/19/19 07:30 White Blood Count 6.2 x10^3/uL Red Blood Count 3.20 x10^6/uL Hemoglobin 10.2 g/dL Hematocrit 29.6 % Mean Corpuscular Volume 93 fL Mean Corpuscular Hemoglobin 32 pg Mean Corpuscular Hemoglobin Concent 35 g/dL Red Cell Distribution Width 14.0 % Platelet Count 200 x10^3/uL Sodium Level 140 mmol/L Potassium Level 3.8 mmol/L Chloride Level 103 mmol/L Carbon Dioxide Level 29 mmol/L Anion Gap 8 Blood Urea Nitrogen 56 mg/dL Creatinine 1.9 mg/dL Estimated GFR (Cockcroft-Gault) 36.2 BUN/Creatinine Ratio 29 Glucose Level 125 mg/dL Calcium Level 8.4 mg/dL Phosphorus Level 2.7 mg/dL Magnesium Level 2.3 mg/dL Iron Level 23 ug/dL Total Iron Binding Capacity 191 ug/dL Iron Saturation 12 % Total Bilirubin 0.5 mg/dL Aspartate Amino Transf (AST/SGOT) 12 U/L Alanine Aminotransferase (ALT/SGPT) 15 U/L Alkaline Phosphatase 44 U/L Total Protein 5.9 g/dL Albumin 2.5 g/dL Albumin/Globulin Ratio 0.7 Vitamin B12 Level 125 pg/mL PE: GEN: NAD, up in chair, family present LUNGS: NC 2L HEART: RRR ABD: soft, round NEURO/PSYCH: A & O 3, friendly A/P: SBO s/p open exploration w/ YOANNA Coffee-ground blood in NG aspirate (resolved), anemia H/o dyspepsia, heartburn MARISOL - better -- Checked anemia parameters - will add B12. Continue PPI and plan for outpt 'scopes. NGT and diet per surgery. JOSE ROLLINS Sep 19, 2019 12:01
[2019-09-19] MEDS: CYANOCOBALAMIN (VITAMIN B-12) 1,000 MCG/ML VIAL IM SCH (12:14)
--- NOTE | 2019-09-19 12:50 | PDOC ---
Renal-Progress Notes Subjective Notes Notes FEELING BETTER History of Present Illness Hx of present illness STABLE Vitals Vitals Vital Signs Date Time Temp Pulse Resp B/P (MAP) Pulse Ox O2 Delivery O2 Flow Rate FiO2 09/19/19 11:00 97.6 91 18 134/79 (97) 97 Nasal Cannula 2.0 97.6 Weight Weight [ ] I.O. Intake and Output Intake and Output 09/19/19 07:00 Output Total 1625 ml Balance -1625 ml Output Urine Total 1175 ml Gastric Drainage Total 250 ml Drainage Total 200 ml # Voids 3 Labs Labs Laboratory Tests Test 09/19/19 07:30 White Blood Count 6.2 x10^3/uL (4.0-11.0) Red Blood Count 3.20 x10^6/uL (4.30-5.70) Hemoglobin 10.2 g/dL (13.0-17.5) Hematocrit 29.6 % (39.0-53.0) Mean Corpuscular Volume 93 fL (79-100) Mean Corpuscular Hemoglobin 32 pg (25-35) Mean Corpuscular Hemoglobin Concent 35 g/dL (31-37) Red Cell Distribution Width 14.0 % (11.5-14.5) Platelet Count 200 x10^3/uL (140-400) Sodium Level 140 mmol/L (136-145) Potassium Level 3.8 mmol/L (3.5-5.1) Chloride Level 103 mmol/L (98-107) Carbon Dioxide Level 29 mmol/L (21-32) Anion Gap 8 (6-14) Blood Urea Nitrogen 56 mg/dL (8-26) Creatinine 1.9 mg/dL (0.7-1.3) Estimated GFR (Cockcroft-Gault) 36.2 BUN/Creatinine Ratio 29 (6-20) Glucose Level 125 mg/dL (70-99) Calcium Level 8.4 mg/dL (8.5-10.1) Phosphorus Level 2.7 mg/dL (2.6-4.7) Magnesium Level 2.3 mg/dL (1.8-2.4) Iron Level 23 ug/dL (65-175) Total Iron Binding Capacity 191 ug/dL (250-450) Iron Saturation 12 % (15-34) Total Bilirubin 0.5 mg/dL (0.2-1.0) Aspartate Amino Transf (AST/SGOT) 12 U/L (15-37) Alanine Aminotransferase (ALT/SGPT) 15 U/L (16-63) Alkaline Phosphatase 44 U/L (46-116) Total Protein 5.9 g/dL (6.4-8.2) Albumin 2.5 g/dL (3.4-5.0) Albumin/Globulin Ratio 0.7 (1.0-1.7) Vitamin B12 Level 125 pg/mL (247-911) Micro Micro Microbiology 09/18/19 Blood Culture - Preliminary, Resulted NO GROWTH AFTER 1 DAY Review of Systems Constitutional: yes: alert, oriented Ears/Nose/Throat: Yes: no symptom reported Eyes: Yes: no symptom reported Pulmonary: Yes no symptom reported Cardiovascular: Yes no symptom reported Gastrointestional: Yes: no symptom reported Genitourinary: Yes: no symptom reported Musculoskeletal: Yes: no symptom reported Skin: Yes no symptom reported Psychiatric/Neurological: Yes: no symptom reported Physical Exam General Appearance: no apparent distress Skin: warm Respiratory: decreased breath sounds Heart: S1S2 Abdomen: soft, bowel sounds present Genitourinary: bladder flat Extremities: pulses present Neurology: alert, oriented Musculoskeletal: Osteoarthritis Assessment Assessment Assessment/Plan IMP SBO DEHYDRATION MARISOL-IMPROVING, CR 1.9 FROM 2.6 PLAN HYDRATION PPN NGT WILL FOLLOW CRISTEL MANZANO MD Sep 19, 2019 12:50
--- NOTE | 2019-09-19 14:57 | NUR ---
Per order, NG hooked back up to wall LIS, will leave on for one hour then clamp NG tube for 3 hours.
[2019-09-19 15:00] VITALS: BP 128/77
--- NOTE | 2019-09-19 15:34 | PN ---
DATE: 09/19/2019 SUBJECTIVE: The patient is resting, slightly propped up in bed, in no apparent distress. On questioning him, he denied any complaint, in particular denied any nausea or vomiting, denied any abdominal pain; however, he has not had any bowel movement or passed any flatus yet. PHYSICAL EXAMINATION: GENERAL: When I examined him, he looked pale, but no jaundice, cyanosis or thyromegaly. No jugular venous distention. No limb edema. VITAL SIGNS: His heart rate was 88, blood pressure was 127/77, temperature 97.7, respiratory rate was 18 and oxygen saturation was 94% on 2 liters of oxygen by nasal cannula. HEAD, EYES, EARS, NOSE AND THROAT: Showed normocephalic, atraumatic. NECK: Supple. HEART: Showed normal first and second heart sounds with no gallop, rub or murmur. CHEST: Clear to auscultation. No crepitation or rhonchi. ABDOMEN: Distended, soft with a midline surgical incision healing nicely with no redness, tenderness or discharge. The bowel sounds are sluggish. NEUROLOGIC: He is awake, alert, responding appropriately. All cranial nerves are intact. He moves extremities without difficulty. His intake was 2900, output was 1845. LABORATORY DATA: His lab work showed his serum sodium was 140, potassium 3.8, chloride 103, bicarbonate 29, anion gap of 8, BUN 56, creatinine 1.9, estimated GFR was 36 mL per minute, glucose 125, calcium was 8.4, phosphorus 2.7, magnesium was 2.3. Total bilirubin, AST, ALT, alkaline phosphatase were normal. Total protein 5.9, albumin 2.5. White cell count was 6200, hemoglobin 10, hematocrit 30, MCV 93 and platelet count 200,000. ASSESSMENT: Small-bowel obstruction, status post laparoscopic converted to open exploration with lysis of adhesions for small-bowel obstruction in the mid ileum. OTHER MEDICAL PROBLEMS: Include: A. Hypertension. B. Hyperlipidemia. C. Ufvjo-ba-jqecwol kidney injury. His creatinine is back to his baseline. PLAN: To continue with IV fluids, continue with the n.p.o. status and procalamine for now as the patient has not had any bowel movement and continue to have postoperative paralytic ileus. ANNE MORALES MD DR: Cornelio JOB#: [id number] / [id number]
[2019-09-19 19:30] VITALS: BP 143/84
[2019-09-19 23:18] VITALS: BP 123/69
[2019-09-20] MEDS: AMINO AC 3%/ELECTROLYTE/GLYCER 1,000 ML IV SCH ×2 (02:51→15:47)
[2019-09-20 03:03] VITALS: BP 119/72
[2019-09-20] MEDS: PIPERACILLIN/TAZOBACTAM 2.25 GM in IV NORMAL SALINE 50ML 50 ML IV SCH ×2 (05:50→15:45)
[2019-09-20 06:35] LABS: CALCIUM 8.3 mg/dL (8.5-10.1); CREATININE 1.7 mg/dL (0.7-1.3); GFR 41.2; POTASSIUM 3.7 mmol/L (3.5-5.1)
[2019-09-20 07:00] VITALS: BP 142/89
[2019-09-20] MEDS: PANTOPRAZOLE IV PUSH 40 MG VIAL. IVP SCH (08:24)
[2019-09-20] MEDS: CYANOCOBALAMIN (VITAMIN B-12) 1,000 MCG/ML VIAL IM SCH (08:25)
[2019-09-20] MEDS: IV NORMAL SALINE 1000ML BAG 1,000 ML IV SCH (09:13)
--- NOTE | 2019-09-20 10:36 | NUR ---
300 cc"s out of NG tube this time. Tube clamped again for another 3 hours.
[2019-09-20 11:00] VITALS: BP 131/75
--- NOTE | 2019-09-20 12:10 | PDOC ---
SURGICAL PROGRESS NOTE Subjective feels better passing gas has been ambulating Vital Signs Vital Signs Date Time Temp Pulse Resp B/P (MAP) Pulse Ox O2 Delivery O2 Flow Rate FiO2 09/20/19 11:00 98.5 69 18 131/75 (93) 94 Room Air 98.5 09/19/19 11:00 2.0 I&O Intake and Output 09/20/19 07:00 Intake Total 2230 ml Output Total 2550 ml Balance -320 ml Intake Oral 60 ml IV Total 1085 ml Other 1085 ml Output Urine Total 1250 ml Gastric Drainage Total 1300 ml PATIENT HAS A REDMAN: No General: Alert, No acute distress HEENT: Other (NG in place with light colored return) Abdomen: Soft, Other (distended) Labs Laboratory Tests Test 09/19/19 07:30 09/20/19 05:14 White Blood Count 6.2 x10^3/uL (4.0-11.0) Red Blood Count 3.20 x10^6/uL (4.30-5.70) Hemoglobin 10.2 g/dL (13.0-17.5) Hematocrit 29.6 % (39.0-53.0) Mean Corpuscular Volume 93 fL (79-100) Mean Corpuscular Hemoglobin 32 pg (25-35) Mean Corpuscular Hemoglobin Concent 35 g/dL (31-37) Red Cell Distribution Width 14.0 % (11.5-14.5) Platelet Count 200 x10^3/uL (140-400) Sodium Level 140 mmol/L (136-145) 140 mmol/L (136-145) Potassium Level 3.8 mmol/L (3.5-5.1) 3.7 mmol/L (3.5-5.1) Chloride Level 103 mmol/L (98-107) 105 mmol/L (98-107) Carbon Dioxide Level 29 mmol/L (21-32) 27 mmol/L (21-32) Anion Gap 8 (6-14) 8 (6-14) Blood Urea Nitrogen 56 mg/dL (8-26) 46 mg/dL (8-26) Creatinine 1.9 mg/dL (0.7-1.3) 1.7 mg/dL (0.7-1.3) Estimated GFR (Cockcroft-Gault) 36.2 41.2 BUN/Creatinine Ratio 29 (6-20) Glucose Level 125 mg/dL (70-99) 106 mg/dL (70-99) Calcium Level 8.4 mg/dL (8.5-10.1) 8.3 mg/dL (8.5-10.1) Phosphorus Level 2.7 mg/dL (2.6-4.7) Magnesium Level 2.3 mg/dL (1.8-2.4) Iron Level 23 ug/dL (65-175) Total Iron Binding Capacity 191 ug/dL (250-450) Iron Saturation 12 % (15-34) Total Bilirubin 0.5 mg/dL (0.2-1.0) Aspartate Amino Transf (AST/SGOT) 12 U/L (15-37) Alanine Aminotransferase (ALT/SGPT) 15 U/L (16-63) Alkaline Phosphatase 44 U/L (46-116) Total Protein 5.9 g/dL (6.4-8.2) Albumin 2.5 g/dL (3.4-5.0) Albumin/Globulin Ratio 0.7 (1.0-1.7) Vitamin B12 Level 125 pg/mL (247-911) Laboratory Tests Test 09/20/19 05:14 Sodium Level 140 mmol/L (136-145) Potassium Level 3.7 mmol/L (3.5-5.1) Chloride Level 105 mmol/L (98-107) Carbon Dioxide Level 27 mmol/L (21-32) Anion Gap 8 (6-14) Blood Urea Nitrogen 46 mg/dL (8-26) Creatinine 1.7 mg/dL (0.7-1.3) Estimated GFR (Cockcroft-Gault) 41.2 Glucose Level 106 mg/dL (70-99) Calcium Level 8.3 mg/dL (8.5-10.1) Assessment/Plan POD 3 continue weaning NG await return of bowel function RAMAN GRIDER MD Sep 20, 2019 12:10
--- NOTE | 2019-09-20 14:50 | PDOC ---
SUBJECTIVE ROS Follow-up for acute kidney injury Patient claims is feeling much better. He thinks his urine output has picked up. Remains nothing by mouth with NG tube in place. Currently on PPN CVS: no Orthopnea, no CP RESP: no SOB, no CORNELIUS GI: no Nausea, no Vomiting : no Dysuria, no Urgency OBJECTIVE Vital Signs Vital Signs Date Time Temp Pulse Resp B/P (MAP) Pulse Ox O2 Delivery O2 Flow Rate FiO2 09/20/19 11:00 98.5 69 18 131/75 (93) 94 Room Air 98.5 09/19/19 11:00 2.0 I & 0 Intake and Output 09/20/19 07:00 Intake Total 2230 ml Output Total 2550 ml Balance -320 ml Intake Oral 60 ml IV Total 1085 ml Other 1085 ml Output Urine Total 1250 ml Gastric Drainage Total 1300 ml PHYSICAL EXAM Physical Exam GEN: Awake, Oriented x 3, In no visible distress EYES: Vision Unchanged, Conjunctiva Normal EN: No EN Drainage, Mucous Membranes moist, NGT in place NECK: no JVD, no JVP, Supple, no Thyromegaly CVS: S1S2, no Murmur, No Gallop, No Rub,no Edema RESP: no Rales, no Rhonchi,no Acc. Muscle Use GI: BS hypoactive, NO Bruit, Non Tender, ? min Distended : no CVA tenderness, no Suprapubic Tenderness DIAGNOSIS/ASSESSMENT Assessment & Plan SBO: Remains on NG tube to suction for decompression on this time. DEHYDRATION: Patient remains on PPN at this time. Appears to be urinating adequately MARISOL-IMPROVING, with IV fluids Iron deficiency anemia: Patient aware of need for colonoscopy. We'll start IV iron. B12 deficiency: Patient has received B12 injections COMMENT/RELEVANT DATA Meds Current Medications Medications (Trade) Dose Ordered Sig/Breezy Start Time Stop Time Status Last Admin Dose Admin Amino Acids/ Glycerin/ Electrolytes 1,000 ml @ 80 mls/hr [id number] 09/18/19 13:30 09/20/19 02:51 80 MLS/HR Benzocaine (Hurricaine One) 1 spray 1X ONCE 09/16/19 16:15 09/16/19 16:24 DC 09/16/19 16:15 1 SPRAY Bupivacaine HCl/ Epinephrine Bitart (Sensorcain-Epi 0.5%-1:510647 Mpf) 30 ml 1X ONCE 09/17/19 11:15 09/17/19 11:16 DC 09/17/19 11:34 7 ML Cyanocobalamin (Vitamin B-12) 1,000 mcg Q7D 10/01/19 09:00 10/22/19 09:01 Desflurane (Suprane) 60 ml STK-MED ONCE 09/17/19 09:30 09/17/19 09:31 DC Dexamethasone Sodium Phosphate (Decadron) 4 mg STK-MED ONCE 09/17/19 09:30 09/17/19 09:31 DC Fentanyl Citrate (Fentanyl 2ml Vial) 100 mcg STK-MED ONCE 09/17/19 13:22 09/17/19 13:23 DC Glycopyrrolate (Robinul) 1 mg STK-MED ONCE 09/17/19 09:30 09/17/19 09:30 DC Hydromorphone HCl (Dilaudid) 0.5 mg PRN Q10MIN PRN 09/17/19 10:00 09/17/19 20:00 DC Lidocaine HCl (Glydo (Lidocaine) Jelly) 2 iván 1X ONCE 09/16/19 16:15 09/16/19 16:16 UNV Lidocaine HCl (Lidocaine Pf 2% Vial) 5 ml STK-MED ONCE 09/17/19 12:43 09/17/19 12:43 DC Lidocaine HCl (Xylocaine-Mpf 1% 2ml Vial) 2 ml PRN 1X PRN 09/17/19 10:00 09/17/19 20:00 DC Morphine Sulfate (Morphine Sulfate) 4 mg PRN Q2HR PRN 09/17/19 17:15 09/18/19 21:22 4 MG Neostigmine Methylsulfate (Neostigmine Methylsulfate) 5 mg STK-MED ONCE 09/17/19 09:30 09/17/19 09:30 DC Ondansetron HCl (Zofran) 4 mg PRN Q6HRS PRN 09/17/19 10:00 09/17/19 20:00 DC Pantoprazole Sodium (PROTONIX VIAL for IV PUSH) 40 mg DAILYAC 09/17/19 07:30 09/20/19 08:24 40 MG Phenol (Chloraseptic) 1 spray PRN Q2HR PRN 09/16/19 17:45 Phenylephrine HCl (PHENYLEPHRINE in 0.9% NACL PF) 1 mg STK-MED ONCE 09/17/19 12:21 09/17/19 12:21 DC Piperacillin Sod/ Tazobactam Sod 2.25 gm/Sodium Chloride 50 ml @ 100 mls/hr Q8HRS 09/17/19 22:00 09/20/19 15:00 09/20/19 05:50 100 MLS/HR Piperacillin Sod/ Tazobactam Sod 3.375 gm/Sodium Chloride 50 ml @ 100 mls/hr Q6HRS 09/20/19 19:00 Prochlorperazine Edisylate (Compazine) 5 mg PACU PRN PRN 09/17/19 10:00 09/17/19 20:00 DC Propofol 20 ml @ As Directed STK-MED ONCE 09/17/19 09:30 09/17/19 09:31 DC Ringer's Solution 1,000 ml @ 30 mls/hr Q24H 09/17/19 09:52 09/17/19 21:51 DC Rocuronium [place] (Zemuron) 50 mg STK-MED ONCE 09/17/19 09:30 09/17/19 09:30 DC Sodium Chloride 500 ml @ 500 mls/hr 1X ONCE 09/18/19 10:30 09/18/19 11:29 DC 09/18/19 10:40 500 MLS/HR Throat Lozenges (Cepacol Sore Throat Lozenge) 1 ted PRN Q2HRS PRN 09/16/19 19:00 Lab Laboratory Tests Test 09/20/19 05:14 Sodium Level 140 mmol/L (136-145) Potassium Level 3.7 mmol/L (3.5-5.1) Chloride Level 105 mmol/L (98-107) Carbon Dioxide Level 27 mmol/L (21-32) Anion Gap 8 (6-14) Blood Urea Nitrogen 46 mg/dL (8-26) Creatinine 1.7 mg/dL (0.7-1.3) Estimated GFR (Cockcroft-Gault) 41.2 Glucose Level 106 mg/dL (70-99) Calcium Level 8.3 mg/dL (8.5-10.1) Results All relevant outside records, renal labs, imaging studies, telemetry/EKG's were reviewed. FOSTER,ACHAL K MD Sep 20, 2019 14:50
[2019-09-20 15:00] VITALS: BP 145/84
[2019-09-20] MEDS: IRON SUCROSE COMPLEX 200 MG in IV NORMAL SALINE 100ML 100 ML IV SCH (15:49)
[2019-09-20 17:47] LABS: BILIRUBIN,URINE NEGATIVE (NEG); CLARITY,URINE CLEAR; COLOR,URINE YELLOW; NITRITE,URINE NEGATIVE (NEG); PROTEIN,URINE NEGATIVE (NEG-TRACE); UROBILINOGEN,URINE 0.2 mg/dL (0.2 mg/dL)
[2019-09-20 18:00] LABS: SQUAMOUS EPITHELIAL CELL,UR OCC /LPF
[2019-09-20 18:01] LABS: BACTERIA,URINE 0 /HPF (0-FEW); RBC,URINE RARE /HPF (0-2); WBC,URINE RARE /HPF (0-4)
[2019-09-20 19:00] VITALS: BP 128/83
[2019-09-20] MEDS: PIPERACILLIN/TAZOBACTAM 3.375 GM in IV NORMAL SALINE 50ML 50 ML IV SCH (20:07)
--- NOTE | 2019-09-20 21:43 | PN ---
DATE: 09/20/2019 SUBJECTIVE: The patient is sitting slightly propped up in bed, in no apparent respiratory distress. On questioning, said he is passing gas and had a small bowel movement this morning. Denied any nausea or vomiting. Denied any abdominal pain. PHYSICAL EXAMINATION: GENERAL: When I examined him, he looked well and was clearly in no apparent respiratory distress, pale, but no jaundice, cyanosis or thyromegaly. No jugular venous distention. No limb edema. VITAL SIGNS: Her heart rate was 86, blood pressure was 142/89, temperature 98.2, respiratory rate was 18 and oxygen saturation was 93% on room air. HEAD, EYES, EARS, NOSE AND THROAT: Showed normocephalic, atraumatic. He has a nasogastric tube to the right nostril. NECK: Supple. CARDIAC: Normal first and second heart sounds. No gallop or murmur. CHEST: Clear to auscultation. No crepitation or rhonchi. ABDOMEN: Distended, soft with midline surgical incision covered with dressing. no tenderness. Bowel sounds are sluggish. NEUROLOGIC: He is awake, alert, responding appropriately. All cranial nerves are intact. He moves extremities without difficulty, ambulates without assistance or assistive devices. His intake was incompletely recorded, output was 1625. LABORATORY DATA: As of this morning, his white cell count is down further to 6200, hemoglobin 10, hematocrit 29, MCV 93, and platelet count 200,000. His chemistry showed a serum sodium 140, potassium 3.7, chloride 105, bicarbonate 27, anion gap of 8, BUN 46, creatinine 1.7, estimated GFR was 41 mL per minute, glucose 106, calcium was 8.3. His vitamin B12 was extremely low at 125, for which he was started on cyanocobalamin. ASSESSMENT: 1. Small bowel obstruction, status post laparoscopic converted to open exploration with lysis of adhesions for small obstruction in mid ileum. 2. Other medical problems include: A. Hypertension. B. Hyperlipidemia. C. Nseou-ak-rlufkze kidney injury. Creatinine down to 1.7. D. Severe vitamin B12 deficiency for which he was started on cyanocobalamin 1000 mcg/mL intramuscular. PLAN: To continue with IV fluid, continue with IV antibiotic. Continue with Protonix. Continue with pain medication. The patient is actually passing gas and has small bowel movement. Await the surgical team evaluation to see whether he can be allowed to be on a clear liquid diet. ANNE MORALES MD DR: TAYO/sven JOB#: [id number] / [id number]
[2019-09-20 23:00] VITALS: BP 112/71
--- NOTE | 2019-09-20 23:32 | RAD ---
Complete renal ultrasound HISTORY: Acute renal failure. Chronic kidney disease. FINDINGS: Right renal length 10.9 cm. Left renal length 9.2 cm. Normal cortical thickness and echogenicity of the right kidney. Mild cortical atrophy of the left kidney. No mass, calculus or hydronephrosis. Shadowing with visualization of the lower poles the kidneys. Mild distention of the urinary bladder. Aorta and IVC not visualized due to bowel gas shadowing. IMPRESSION: Left renal cortical atrophy. No hydronephrosis. Electronically signed by: Vic Montoya MD (09/20/2019 11:29 PM) [facility]
[2019-09-21 03:00] VITALS: BP 131/84
[2019-09-21] MEDS: PIPERACILLIN/TAZOBACTAM 3.375 GM in IV NORMAL SALINE 50ML 50 ML IV SCH ×5 (06:00→18:32)
[2019-09-21 07:24] VITALS: BP 127/82
[2019-09-21] MEDS: PANTOPRAZOLE IV PUSH 40 MG VIAL. IVP SCH (08:57)
[2019-09-21] MEDS: CYANOCOBALAMIN (VITAMIN B-12) 1,000 MCG/ML VIAL IM SCH (08:58)
[2019-09-21] MEDS: AMINO AC 3%/ELECTROLYTE/GLYCER 1,000 ML IV SCH (08:58)
[2019-09-21 10:48] LABS: CALCIUM 8.6 mg/dL (8.5-10.1); CREATININE 1.6 mg/dL (0.7-1.3); GFR 44.2; POTASSIUM 3.5 mmol/L (3.5-5.1)
--- NOTE | 2019-09-21 10:50 | PDOC ---
SUBJECTIVE ROS For acute kidney injury Patient claims he is doing well overall. He is expecting his NG tube to be pulled in the near future and thinks he will be able to eat by mouth. CVS: no Orthopnea, no CP RESP: no SOB, no CORNELIUS GI: no Nausea, no Vomiting : no Dysuria, no Urgency OBJECTIVE Vital Signs Vital Signs Date Time Temp Pulse Resp B/P (MAP) Pulse Ox O2 Delivery O2 Flow Rate FiO2 09/21/19 08:00 Room Air 09/21/19 07:24 98.1 80 18 127/82 (97) 93 98.1 I & 0 Intake and Output 09/21/19 07:00 Intake Total 1085 ml Output Total 2600 ml Balance -1515 ml Intake Oral 0 ml Blood Product IV Normal Saline Flush 1085 ml Output Urine Total 1700 ml Gastric Drainage Total 900 ml # Voids 4 PHYSICAL EXAM Physical Exam GEN: Awake, Oriented x 3, In no visible distress EYES: Vision Unchanged, Conjunctiva Normal EN: No EN Drainage, Mucous Membranes moist, NGT in place NECK: no JVD, no JVP, Supple, no Thyromegaly CVS: S1S2, no Murmur, No Gallop, No Rub,no Edema RESP: no Rales, no Rhonchi,no Acc. Muscle Use GI: BS hypoactive, NO Bruit, Non Tender, ? min Distended : no CVA tenderness, no Suprapubic Tenderness DIAGNOSIS/ASSESSMENT Assessment & Plan SBO: Remains on NG tube to suction for decompression on this time. He is expecting to have his NG tube removed soon. DEHYDRATION: Patient remains on PPN at this time. Appears to be urinating adequately, appears to be euvolemic currently MARISOL-IMPROVING, with IV fluids. Iron deficiency anemia: Patient aware of need for colonoscopy. We'll start IV iron. B12 deficiency: Patient has received B12 injections COMMENT/RELEVANT DATA Meds Current Medications Medications (Trade) Dose Ordered Sig/Breezy Start Time Stop Time Status Last Admin Dose Admin Amino Acids/ Glycerin/ Electrolytes 1,000 ml @ 80 mls/hr [id number] 09/18/19 13:30 09/21/19 08:58 80 MLS/HR Benzocaine (Hurricaine One) 1 spray 1X ONCE 09/16/19 16:15 09/16/19 16:24 DC 09/16/19 16:15 1 SPRAY Bupivacaine HCl/ Epinephrine Bitart (Sensorcain-Epi 0.5%-1:223214 Mpf) 30 ml 1X ONCE 09/17/19 11:15 09/17/19 11:16 DC 09/17/19 11:34 7 ML Cyanocobalamin (Vitamin B-12) 1,000 mcg Q7D 10/01/19 09:00 10/22/19 09:01 Desflurane (Suprane) 60 ml STK-MED ONCE 09/17/19 09:30 09/17/19 09:31 DC Dexamethasone Sodium Phosphate (Decadron) 4 mg STK-MED ONCE 09/17/19 09:30 09/17/19 09:31 DC Fentanyl Citrate (Fentanyl 2ml Vial) 100 mcg STK-MED ONCE 09/17/19 13:22 09/17/19 13:23 DC Glycopyrrolate (Robinul) 1 mg STK-MED ONCE 09/17/19 09:30 09/17/19 09:30 DC Hydromorphone HCl (Dilaudid) 0.5 mg PRN Q10MIN PRN 09/17/19 10:00 09/17/19 20:00 DC Iron Sucrose 200 mg/Sodium Chloride 110 ml @ 55 mls/hr 3X/WEEK 09/20/19 16:00 09/29/19 10:59 09/20/19 15:49 55 MLS/HR Lidocaine HCl (Glydo (Lidocaine) Jelly) 2 iván 1X ONCE 09/16/19 16:15 09/16/19 16:16 UNV Lidocaine HCl (Lidocaine Pf 2% Vial) 5 ml STK-MED ONCE 09/17/19 12:43 09/17/19 12:43 DC Lidocaine HCl (Xylocaine-Mpf 1% 2ml Vial) 2 ml PRN 1X PRN 09/17/19 10:00 09/17/19 20:00 DC Morphine Sulfate (Morphine Sulfate) 4 mg PRN Q2HR PRN 09/17/19 17:15 09/18/19 21:22 4 MG Neostigmine Methylsulfate (Neostigmine Methylsulfate) 5 mg STK-MED ONCE 09/17/19 09:30 09/17/19 09:30 DC Ondansetron HCl (Zofran) 4 mg PRN Q6HRS PRN 09/17/19 10:00 09/17/19 20:00 DC Pantoprazole Sodium (PROTONIX VIAL for IV PUSH) 40 mg DAILYAC 09/17/19 07:30 09/21/19 08:57 40 MG Phenol (Chloraseptic) 1 spray PRN Q2HR PRN 09/16/19 17:45 Phenylephrine HCl (PHENYLEPHRINE in 0.9% NACL PF) 1 mg STK-MED ONCE 09/17/19 12:21 09/17/19 12:21 DC Piperacillin Sod/ Tazobactam Sod 2.25 gm/Sodium Chloride 50 ml @ 100 mls/hr Q8HRS 09/17/19 22:00 09/20/19 15:00 DC 09/20/19 15:45 100 MLS/HR Piperacillin Sod/ Tazobactam Sod 3.375 gm/Sodium Chloride 50 ml @ 100 mls/hr Q6HRS 09/20/19 19:00 09/21/19 06:00 100 MLS/HR Prochlorperazine Edisylate (Compazine) 5 mg PACU PRN PRN 09/17/19 10:00 09/17/19 20:00 DC Propofol 20 ml @ As Directed STK-MED ONCE 09/17/19 09:30 09/17/19 09:31 DC Ringer's Solution 1,000 ml @ 30 mls/hr Q24H 09/17/19 09:52 09/17/19 21:51 DC Rocuronium [place] (Zemuron) 50 mg STK-MED ONCE 09/17/19 09:30 09/17/19 09:30 DC Sodium Chloride 500 ml @ 500 mls/hr 1X ONCE 09/18/19 10:30 09/18/19 11:29 DC 09/18/19 10:40 500 MLS/HR Throat Lozenges (Cepacol Sore Throat Lozenge) 1 ted PRN Q2HRS PRN 09/16/19 19:00 Lab Laboratory Tests Test 09/20/19 16:55 Urine Collection Type Unknown Urine Color Yellow Urine Clarity Clear Urine pH 6.0 Urine Specific [place] 1.020 Urine Protein Negative mg/dL (NEG-TRACE) Urine Glucose (UA) Negative mg/dL (NEG) Urine Ketones (Stick) Negative mg/dL (NEG) Urine Blood Trace (NEG) Urine Nitrite Negative (NEG) Urine Bilirubin Negative (NEG) Urine Urobilinogen Dipstick 0.2 mg/dL (0.2 mg/dL) Urine Leukocyte Esterase Negative (NEG) Urine RBC Rare /HPF (0-2) Urine WBC Rare /HPF (0-4) Urine Squamous Epithelial Cells Occ /LPF Urine Bacteria 0 /HPF (0-FEW) Results All relevant outside records, renal labs, imaging studies, telemetry/EKG's were reviewed. ESE FOSTER MD Sep 21, 2019 10:50
[2019-09-21 11:00] VITALS: BP 137/85
--- NOTE | 2019-09-21 11:20 | PN ---
DATE: SUBJECTIVE: The patient is resting, slightly propped up in bed, in no apparent distress, awake, alert. On questioning him, he denied any complaint, in particular denied any nausea or vomiting. Denied any abdominal pain. He said he has had vasculitis. PHYSICAL EXAMINATION: GENERAL: Today when I examined him, he looked well and was clearly in no apparent respiratory distress, slightly pale, but no jaundice, cyanosis or thyromegaly. No jugular venous distention. No limb edema. VITAL SIGNS: His heart rate was 80, blood pressure 127/82, temperature 98, respiratory rate was 18 and oxygen saturation was 93% on room air. HEAD, EYES, EARS, NOSE AND THROAT: Normocephalic, atraumatic. NECK: Supple. HEART: Showed normal first and second heart sounds with no gallop or murmur. CHEST: Clear to auscultation. No crepitation or rhonchi. ABDOMEN: Distended, soft, no tenderness. No guarding or rigidity. Midline surgical incision covered with dressing. Bowel sounds are audible. NEUROLOGIC: He is awake, alert, responding appropriately. All cranial nerves are intact. He moves extremities without difficulty, ambulates without assistance or assistive devices. His intake was 2230, output was 2550. LABORATORY DATA: As of yesterday, serum sodium was 140, potassium 3.7, chloride 105, bicarbonate 27, anion gap of 8, BUN 46, creatinine was 1.7, estimated GFR was 41 mL per minute, his glucose 106, calcium was 8.3. ASSESSMENT: 1. Small-bowel obstruction, status post laparoscopic converted to open exploration and lysis of adhesion, small-bowel obstruction mid ileum. 2. Other medical problems include: A. Hypertension. B. Hyperlipidemia. C. Acute on chronic kidney injury. Creatinine is down to 1.7. D. Severe vitamin B12 deficiency, for which he was started on cyanocobalamin. PLAN: Continue with IV fluid, continue with IV antibiotic. Continue with IV Protonix as well as pain medication. The patient said that he is passing gas and has small bowel movement. Await surgical evaluation to see whether he can be allowed to be on a clear liquid diet. Meanwhile, I will repeat all his labs today to make sure his potassium remains within normal range. ANNE MORALES MD DR: TAYO/sven JOB#: [id number] / [id number]
[2019-09-21 15:00] VITALS: BP 143/82
[2019-09-21 19:00] VITALS: BP 138/86
--- NOTE | 2019-09-21 19:30 | NUR ---
09/21/ NG TUBE DRAINAGE TOTAL WAS 1100. TUBE CLAMPED FOR 3-4 HOURS AND THEN DRAINED FOR 1-1/2HRS
[2019-09-21 23:00] VITALS: BP 129/98
[2019-09-22] MEDS: PIPERACILLIN/TAZOBACTAM 3.375 GM in IV NORMAL SALINE 50ML 50 ML IV SCH ×4 (00:12→17:21)
[2019-09-22] MEDS: AMINO AC 3%/ELECTROLYTE/GLYCER 1,000 ML IV SCH ×3 (00:18→16:07)
[2019-09-22 03:00] VITALS: BP 117/78
[2019-09-22 05:14] LABS: HEMOGLOBIN 10.5 g/dL (13.0-17.5); RED BLOOD COUNT 3.33 x10^6/uL (4.30-5.70); RED CELL DISTRIBUTION WIDTH 13.6 % (11.5-14.5)
[2019-09-22 05:38] LABS: ALBUMIN 2.3 g/dL (3.4-5.0); ALBUMIN/GLOBULIN RATIO 0.7 (1.0-1.7); CALCIUM 8.6 mg/dL (8.5-10.1); CREATININE 1.6 mg/dL (0.7-1.3); GFR 44.2; POTASSIUM 3.5 mmol/L (3.5-5.1); TOTAL BILIRUBIN 0.3 mg/dL (0.2-1.0); TOTAL PROTEIN 5.8 g/dL (6.4-8.2)
[2019-09-22 07:00] VITALS: BP 124/80
[2019-09-22] MEDS: IRON SUCROSE COMPLEX 200 MG in IV NORMAL SALINE 100ML 100 ML IV SCH (09:37)
[2019-09-22] MEDS: PANTOPRAZOLE IV PUSH 40 MG VIAL. IVP SCH (09:37)
[2019-09-22] MEDS: CYANOCOBALAMIN (VITAMIN B-12) 1,000 MCG/ML VIAL IM SCH (09:37)
--- NOTE | 2019-09-22 10:06 | PDOC ---
Subjective: Subjective: Doing okay - indicates still getting a lot from NG when hooked to suction. Objective: Vital Signs: Vital Signs Date Time Temp Pulse Resp B/P (MAP) Pulse Ox O2 Delivery O2 Flow Rate FiO2 09/22/19 08:00 Room Air 09/22/19 07:00 97.5 85 18 124/80 (95) 94 97.5 Labs: Laboratory Tests Test 09/21/19 10:20 09/22/19 04:20 Sodium Level 141 mmol/L 140 mmol/L Potassium Level 3.5 mmol/L 3.5 mmol/L Chloride Level 105 mmol/L 104 mmol/L Carbon Dioxide Level 24 mmol/L 26 mmol/L Anion Gap 12 10 Blood Urea Nitrogen 39 mg/dL 36 mg/dL Creatinine 1.6 mg/dL 1.6 mg/dL Estimated GFR (Cockcroft-Gault) 44.2 44.2 Glucose Level 109 mg/dL 107 mg/dL Calcium Level 8.6 mg/dL 8.6 mg/dL White Blood Count 9.0 x10^3/uL Red Blood Count 3.33 x10^6/uL Hemoglobin 10.5 g/dL Hematocrit 30.0 % Mean Corpuscular Volume 90 fL Mean Corpuscular Hemoglobin 32 pg Mean Corpuscular Hemoglobin Concent 35 g/dL Red Cell Distribution Width 13.6 % Platelet Count 252 x10^3/uL BUN/Creatinine Ratio 23 Total Bilirubin 0.3 mg/dL Aspartate Amino Transf (AST/SGOT) 10 U/L Alanine Aminotransferase (ALT/SGPT) 21 U/L Alkaline Phosphatase 66 U/L Total Protein 5.8 g/dL Albumin 2.3 g/dL Albumin/Globulin Ratio 0.7 BLOOD CULTURE Preliminary NO GROWTH AFTER 4 DAYS Imaging: Renal US 09/20 IMPRESSION: Left renal cortical atrophy. No hydronephrosis. PE: GEN: NAD - walking halls w/ therapy HEENT: NGT in place NEURO/PSYCH: A & O 3 A/P: SBO s/p open exploration w/ YOANNA Coffee-ground blood in NG aspirate (resolved), anemia (stable), B12 deficiency and some component of iron deficiency (on replacements per primary and nephrology) H/o dyspepsia, heartburn - on IV PPI MARISOL -- Continue per surgery. Outpt 'scopes as discussed in the past. JOSE ROLLINS Sep 22, 2019 10:06
[2019-09-22 11:00] VITALS: BP 124/79
--- NOTE | 2019-09-22 11:21 | PN ---
DATE: SUBJECTIVE: The patient is resting, slightly propped up in bed, in no apparent respiratory distress, awake, alert. On questioning him, he has no nausea or vomiting, mild abdominal pain that is due to vasculitis. His NG tube is clamped. PHYSICAL EXAMINATION: GENERAL: When I examined him, he looked pale. No jaundice, cyanosis or thyromegaly. No jugular venous distension. No lower limb edema. VITAL SIGNS: His heart rate was 85, blood pressure was 124/80, temperature was 97.5, respiratory rate was 18 and oxygen saturation was 94%. HEAD, EYES, EARS, NOSE AND THROAT: Showed normocephalic, atraumatic. He has an NG tube to the right nostril. NECK: Supple. CARDIAC: Normal first and second heart sounds. No gallop or murmur. CHEST: Clear to auscultation. No crepitation or rhonchi. ABDOMEN: Distended, soft. Midline surgical incision covered with dressing. There is no tenderness. No guarding or rigidity. Bowel sounds are audible. NEUROLOGICAL: He is awake, alert, responding appropriately. All cranial nerves are intact. He ambulates without assistance or assistive devices. His intake over the last 24 hours was 1100, output was 2600. LABORATORY DATA: As of this morning, his serum sodium was 140, potassium 3.5, chloride 104, bicarbonate 26, anion gap of 10, BUN 36, creatinine 1.6, estimated GFR was 44 mL per minute, his glucose 107, calcium was 8.6. Total bilirubin, AST, ALT and alkaline phosphatase were normal. Total protein was 5.8, albumin 2.3. His white cell count was 9000, hemoglobin 10, hematocrit 30, MCV 90 and platelet count 252,000. ASSESSMENT: 1. Small bowel obstruction, status post laparoscopic converted to open exploration and lysis of adhesions, small bowel obstruction to mid ileum. 2. The patient has multiple other medical problems including: A. Hypertension. B. Hyperlipidemia. C. [id number] kidney injury, resolved. His creatinine is down to 1.6. D. Severe vitamin B12 deficiency for which he was started on cyanocobalamin. PLAN: To continue with IV fluid in the form of procalamine, continue IV antibiotic, IV Protonix and pain medication. AHMED M. CARMEN, MD DR: TAYO/sven JOB#: [id number] / [id number]
--- NOTE | 2019-09-22 11:27 | PDOC ---
SHELBY HUGHES [employer]INE [employer]IMAL TRAINER 09/22/19 1127: SURGICAL PROGRESS NOTE Subjective some stool, + flatus still high NG outputs Vital Signs Vital Signs Date Time Temp Pulse Resp B/P (MAP) Pulse Ox O2 Delivery O2 Flow Rate FiO2 09/22/19 08:00 Room Air 09/22/19 07:00 97.5 85 18 124/80 (95) 94 97.5 I&O Intake and Output 09/22/19 07:00 Intake Total 2080 ml Output Total 3700 ml Balance -1620 ml Intake Oral 60 ml IV Total 960 ml Other 1060 ml Output Urine Total 1200 ml Gastric Drainage Total 1400 ml Emesis 0 ml Drainage Total 1100 ml General: Alert, Oriented X3, Cooperative HEENT: Other (ng in place) Abdomen: Soft Labs Laboratory Tests Test 09/20/19 16:55 09/21/19 10:20 09/22/19 04:20 Urine Collection Type Unknown Urine Color Yellow Urine Clarity Clear Urine pH 6.0 Urine Specific [place] 1.020 Urine Protein Negative mg/dL (NEG-TRACE) Urine Glucose (UA) Negative mg/dL (NEG) Urine Ketones (Stick) Negative mg/dL (NEG) Urine Blood Trace (NEG) Urine Nitrite Negative (NEG) Urine Bilirubin Negative (NEG) Urine Urobilinogen Dipstick 0.2 mg/dL (0.2 mg/dL) Urine Leukocyte Esterase Negative (NEG) Urine RBC Rare /HPF (0-2) Urine WBC Rare /HPF (0-4) Urine Squamous Epithelial Cells Occ /LPF Urine Bacteria 0 /HPF (0-FEW) Urine Random Sodium 114 mmol/L (Not Estab.) Sodium Level 141 mmol/L (136-145) 140 mmol/L (136-145) Potassium Level 3.5 mmol/L (3.5-5.1) 3.5 mmol/L (3.5-5.1) Chloride Level 105 mmol/L (98-107) 104 mmol/L (98-107) Carbon Dioxide Level 24 mmol/L (21-32) 26 mmol/L (21-32) Anion Gap 12 (6-14) 10 (6-14) Blood Urea Nitrogen 39 mg/dL (8-26) 36 mg/dL (8-26) Creatinine 1.6 mg/dL (0.7-1.3) 1.6 mg/dL (0.7-1.3) Estimated GFR (Cockcroft-Gault) 44.2 44.2 Glucose Level 109 mg/dL (70-99) 107 mg/dL (70-99) Calcium Level 8.6 mg/dL (8.5-10.1) 8.6 mg/dL (8.5-10.1) White Blood Count 9.0 x10^3/uL (4.0-11.0) Red Blood Count 3.33 x10^6/uL (4.30-5.70) Hemoglobin 10.5 g/dL (13.0-17.5) Hematocrit 30.0 % (39.0-53.0) Mean Corpuscular Volume 90 fL (79-100) Mean Corpuscular Hemoglobin 32 pg (25-35) Mean Corpuscular Hemoglobin Concent 35 g/dL (31-37) Red Cell Distribution Width 13.6 % (11.5-14.5) Platelet Count 252 x10^3/uL (140-400) BUN/Creatinine Ratio 23 (6-20) Total Bilirubin 0.3 mg/dL (0.2-1.0) Aspartate Amino Transf (AST/SGOT) 10 U/L (15-37) Alanine Aminotransferase (ALT/SGPT) 21 U/L (16-63) Alkaline Phosphatase 66 U/L (46-116) Total Protein 5.8 g/dL (6.4-8.2) Albumin 2.3 g/dL (3.4-5.0) Albumin/Globulin Ratio 0.7 (1.0-1.7) Laboratory Tests Test 09/22/19 04:20 White Blood Count 9.0 x10^3/uL (4.0-11.0) Red Blood Count 3.33 x10^6/uL (4.30-5.70) Hemoglobin 10.5 g/dL (13.0-17.5) Hematocrit 30.0 % (39.0-53.0) Mean Corpuscular Volume 90 fL (79-100) Mean Corpuscular Hemoglobin 32 pg (25-35) Mean Corpuscular Hemoglobin Concent 35 g/dL (31-37) Red Cell Distribution Width 13.6 % (11.5-14.5) Platelet Count 252 x10^3/uL (140-400) Sodium Level 140 mmol/L (136-145) Potassium Level 3.5 mmol/L (3.5-5.1) Chloride Level 104 mmol/L (98-107) Carbon Dioxide Level 26 mmol/L (21-32) Anion Gap 10 (6-14) Blood Urea Nitrogen 36 mg/dL (8-26) Creatinine 1.6 mg/dL (0.7-1.3) Estimated GFR (Cockcroft-Gault) 44.2 BUN/Creatinine Ratio 23 (6-20) Glucose Level 107 mg/dL (70-99) Calcium Level 8.6 mg/dL (8.5-10.1) Total Bilirubin 0.3 mg/dL (0.2-1.0) Aspartate Amino Transf (AST/SGOT) 10 U/L (15-37) Alanine Aminotransferase (ALT/SGPT) 21 U/L (16-63) Alkaline Phosphatase 66 U/L (46-116) Total Protein 5.8 g/dL (6.4-8.2) Albumin 2.3 g/dL (3.4-5.0) Albumin/Globulin Ratio 0.7 (1.0-1.7) Assessment/Plan will continue with NG clamping RAMAN GRIDER MD 09/22/19 1440: SURGICAL PROGRESS NOTE Assessment/Plan pt seen agree with above will check supine/upright films SHELBY HUGHES APRN Sep 22, 2019 11:27 RAMAN GRIDER MD Sep 22, 2019 14:40
--- NOTE | 2019-09-22 11:45 | PDOC ---
Renal-Progress Notes Subjective Notes Notes NO NEW COMPLAINTS History of Present Illness Hx of present illness STABLE Vitals Vitals Vital Signs Date Time Temp Pulse Resp B/P (MAP) Pulse Ox O2 Delivery O2 Flow Rate FiO2 09/22/19 08:00 Room Air 09/22/19 07:00 97.5 85 18 124/80 (95) 94 97.5 Weight Weight [ ] I.O. Intake and Output Intake and Output 09/22/19 07:00 Intake Total 2080 ml Output Total 3700 ml Balance -1620 ml Intake Oral 60 ml IV Total 960 ml Other 1060 ml Output Urine Total 1200 ml Gastric Drainage Total 1400 ml Emesis 0 ml Drainage Total 1100 ml Labs Labs Laboratory Tests Test 09/22/19 04:20 White Blood Count 9.0 x10^3/uL (4.0-11.0) Red Blood Count 3.33 x10^6/uL (4.30-5.70) Hemoglobin 10.5 g/dL (13.0-17.5) Hematocrit 30.0 % (39.0-53.0) Mean Corpuscular Volume 90 fL (79-100) Mean Corpuscular Hemoglobin 32 pg (25-35) Mean Corpuscular Hemoglobin Concent 35 g/dL (31-37) Red Cell Distribution Width 13.6 % (11.5-14.5) Platelet Count 252 x10^3/uL (140-400) Sodium Level 140 mmol/L (136-145) Potassium Level 3.5 mmol/L (3.5-5.1) Chloride Level 104 mmol/L (98-107) Carbon Dioxide Level 26 mmol/L (21-32) Anion Gap 10 (6-14) Blood Urea Nitrogen 36 mg/dL (8-26) Creatinine 1.6 mg/dL (0.7-1.3) Estimated GFR (Cockcroft-Gault) 44.2 BUN/Creatinine Ratio 23 (6-20) Glucose Level 107 mg/dL (70-99) Calcium Level 8.6 mg/dL (8.5-10.1) Total Bilirubin 0.3 mg/dL (0.2-1.0) Aspartate Amino Transf (AST/SGOT) 10 U/L (15-37) Alanine Aminotransferase (ALT/SGPT) 21 U/L (16-63) Alkaline Phosphatase 66 U/L (46-116) Total Protein 5.8 g/dL (6.4-8.2) Albumin 2.3 g/dL (3.4-5.0) Albumin/Globulin Ratio 0.7 (1.0-1.7) Micro Micro Microbiology 09/18/19 Blood Culture - Preliminary, Resulted NO GROWTH AFTER 4 DAYS Review of Systems Constitutional: yes: alert, oriented Ears/Nose/Throat: Yes: no symptom reported Eyes: Yes: no symptom reported Pulmonary: Yes no symptom reported Cardiovascular: Yes no symptom reported Gastrointestional: Yes: no symptom reported Genitourinary: Yes: no symptom reported Musculoskeletal: Yes: no symptom reported Skin: Yes no symptom reported Psychiatric/Neurological: Yes: no symptom reported Physical Exam General Appearance: no apparent distress Skin: warm Respiratory: decreased breath sounds Heart: S1S2 Abdomen: soft, bowel sounds present Genitourinary: bladder flat Extremities: pulses present Neurology: alert, oriented Musculoskeletal: Osteoarthritis Assessment Assessment IMP SBO DEHYDRATION MARISOL-IMPROVING, CR 1.6 FROM 2.6 SUSPECT CKD WITH CR AT BASELINE NOW PLAN HYDRATION PPN NGT WILL FOLLOW CRISTEL MANZANO MD Sep 22, 2019 11:45
--- NOTE | 2019-09-22 13:46 | NUR ---
SW following. Discussed with RN, PT/OT recommending home health upon discharge. Pt still NPO, ng tube. RN advised pt not ready to discharge home today. SW will continue to follow.
[2019-09-22 15:00] VITALS: BP 119/78
--- NOTE | 2019-09-22 15:30 | RAD ---
EXAM: Abdomen, 2 views. HISTORY: Small bowel obstruction. COMPARISON: 09/17/2019 FINDINGS: Frontal upright and supine views of the abdomen are obtained. There are distended air-filled loops of bowel primarily within the left abdomen. No transition point is seen. There is nasogastric tube within a decompressed stomach. There are small bilateral pleural effusions. IMPRESSION: 1. Persistent distended air-filled small bowel primarily within the left abdomen. The small bowel caliber is similar compared to the prior study. However, there are decreased distended small bowel loops within the right abdomen compared to the prior study. 2. Small pleural effusions. 3. Nasogastric tube within the stomach. Electronically signed by: Brielle Langston MD (09/22/2019 3:27 PM) [place] [id number]
[2019-09-22 19:00] VITALS: BP 139/92
[2019-09-22 23:00] VITALS: BP 120/78
[2019-09-23] MEDS: PIPERACILLIN/TAZOBACTAM 3.375 GM in IV NORMAL SALINE 50ML 50 ML IV SCH ×4 (00:07→17:19)
[2019-09-23 03:00] VITALS: BP 121/89
[2019-09-23] MEDS: AMINO AC 3%/ELECTROLYTE/GLYCER 1,000 ML IV SCH ×2 (04:45→17:19)
[2019-09-23 05:38] LABS: CALCIUM 8.7 mg/dL (8.5-10.1); CREATININE 1.6 mg/dL (0.7-1.3); GFR 44.2; POTASSIUM 3.5 mmol/L (3.5-5.1)
[2019-09-23 07:00] VITALS: BP 122/79
--- NOTE | 2019-09-23 08:00 | NUR ---
NGT returned to [facility].
--- NOTE | 2019-09-23 08:52 | PDOC ---
SHELBY HUGHES PROCESS CHECKER 09/23/19 0852: SURGICAL PROGRESS NOTE Subjective more flatus yesterday then today no significant pain Vital Signs Vital Signs Date Time Temp Pulse Resp B/P (MAP) Pulse Ox O2 Delivery O2 Flow Rate FiO2 09/23/19 07:00 97.9 79 16 122/79 (93) 94 Room Air 97.9 I&O Intake and Output 09/23/19 06:59 Intake Total 100 ml Output Total 2860 ml Balance -2760 ml Intake Oral 100 ml Output Urine Total 1750 ml Gastric Drainage Total 810 ml Drainage Total 300 ml # Voids 2 General: Alert, Cooperative HEENT: Other (ng in place) Abdomen: Soft, Other (incision c/d/i) Labs Laboratory Tests Test 09/21/19 10:20 09/22/19 04:20 09/23/19 04:30 Sodium Level 141 mmol/L (136-145) 140 mmol/L (136-145) 139 mmol/L (136-145) Potassium Level 3.5 mmol/L (3.5-5.1) 3.5 mmol/L (3.5-5.1) 3.5 mmol/L (3.5-5.1) Chloride Level 105 mmol/L (98-107) 104 mmol/L (98-107) 103 mmol/L (98-107) Carbon Dioxide Level 24 mmol/L (21-32) 26 mmol/L (21-32) 27 mmol/L (21-32) Anion Gap 12 (6-14) 10 (6-14) 9 (6-14) Blood Urea Nitrogen 39 mg/dL (8-26) 36 mg/dL (8-26) 35 mg/dL (8-26) Creatinine 1.6 mg/dL (0.7-1.3) 1.6 mg/dL (0.7-1.3) 1.6 mg/dL (0.7-1.3) Estimated GFR (Cockcroft-Gault) 44.2 44.2 44.2 Glucose Level 109 mg/dL (70-99) 107 mg/dL (70-99) 110 mg/dL (70-99) Calcium Level 8.6 mg/dL (8.5-10.1) 8.6 mg/dL (8.5-10.1) 8.7 mg/dL (8.5-10.1) White Blood Count 9.0 x10^3/uL (4.0-11.0) Red Blood Count 3.33 x10^6/uL (4.30-5.70) Hemoglobin 10.5 g/dL (13.0-17.5) Hematocrit 30.0 % (39.0-53.0) Mean Corpuscular Volume 90 fL (79-100) Mean Corpuscular Hemoglobin 32 pg (25-35) Mean Corpuscular Hemoglobin Concent 35 g/dL (31-37) Red Cell Distribution Width 13.6 % (11.5-14.5) Platelet Count 252 x10^3/uL (140-400) BUN/Creatinine Ratio 23 (6-20) Total Bilirubin 0.3 mg/dL (0.2-1.0) Aspartate Amino Transf (AST/SGOT) 10 U/L (15-37) Alanine Aminotransferase (ALT/SGPT) 21 U/L (16-63) Alkaline Phosphatase 66 U/L (46-116) Total Protein 5.8 g/dL (6.4-8.2) Albumin 2.3 g/dL (3.4-5.0) Albumin/Globulin Ratio 0.7 (1.0-1.7) Laboratory Tests Test 09/23/19 04:30 Sodium Level 139 mmol/L (136-145) Potassium Level 3.5 mmol/L (3.5-5.1) Chloride Level 103 mmol/L (98-107) Carbon Dioxide Level 27 mmol/L (21-32) Anion Gap 9 (6-14) Blood Urea Nitrogen 35 mg/dL (8-26) Creatinine 1.6 mg/dL (0.7-1.3) Estimated GFR (Cockcroft-Gault) 44.2 Glucose Level 110 mg/dL (70-99) Calcium Level 8.7 mg/dL (8.5-10.1) Problem List xrays reviewed await improved bowel function, will continue NG for now increase activity RAMAN GRIDER MD 09/23/19 1520: SURGICAL PROGRESS NOTE Assessment/Plan pt seen will try NG off suction SHELBY HUGHES APRN Sep 23, 2019 08:52 RAMAN GRIDER MD Sep 23, 2019 15:20
[2019-09-23] MEDS: PANTOPRAZOLE IV PUSH 40 MG VIAL. IVP SCH (09:37)
[2019-09-23] MEDS: CYANOCOBALAMIN (VITAMIN B-12) 1,000 MCG/ML VIAL IM SCH (09:37)
--- NOTE | 2019-09-23 10:38 | PDOC ---
Subjective: Subjective: Reports small stool yesterday, wondering about of NG suction/clamping. Objective: Vital Signs: Vital Signs Date Time Temp Pulse Resp B/P (MAP) Pulse Ox O2 Delivery O2 Flow Rate FiO2 09/23/19 07:40 Room Air 09/23/19 07:00 97.9 79 16 122/79 (93) 94 97.9 Imaging: Abd X-Ray IMPRESSION: 1. Persistent distended air-filled small bowel primarily within the left abdomen. The small bowel caliber is similar compared to the prior study. However, there are decreased distended small bowel loops within the right abdomen compared to the prior study. 2. Small pleural effusions. 3. Nasogastric tube within the stomach. PE: GEN: NAD HEENT: NG bilious ABD: quiet, soft NEURO/PSYCH: A & O 3 A/P: SBO s/p open exploration w/ YOANNA - still needing NG, recent x-ray as above Anemia - B12 deficient, also some iron deficiency, plans for outpt scopes H/o dyspepsia, heartburn - on IV PPI -- Continue per surgery. JOSE ROLLINS Sep 23, 2019 10:38
[2019-09-23 11:00] VITALS: BP 127/84
--- NOTE | 2019-09-23 12:24 | PDOC ---
Renal-Progress Notes Subjective Notes Notes NO NEW COMPLAINTS, SOME FLATUS History of Present Illness Hx of present illness STABLE Vitals Vitals Vital Signs Date Time Temp Pulse Resp B/P (MAP) Pulse Ox O2 Delivery O2 Flow Rate FiO2 09/23/19 11:00 98.8 93 16 127/84 (98) 97 Room Air 98.8 Weight Weight [ ] I.O. Intake and Output Intake and Output 09/23/19 07:00 Intake Total 100 ml Output Total 2860 ml Balance -2760 ml Intake Oral 100 ml Output Urine Total 1750 ml Gastric Drainage Total 810 ml Drainage Total 300 ml # Voids 2 Labs Labs Laboratory Tests Test 09/23/19 04:30 Sodium Level 139 mmol/L (136-145) Potassium Level 3.5 mmol/L (3.5-5.1) Chloride Level 103 mmol/L (98-107) Carbon Dioxide Level 27 mmol/L (21-32) Anion Gap 9 (6-14) Blood Urea Nitrogen 35 mg/dL (8-26) Creatinine 1.6 mg/dL (0.7-1.3) Estimated GFR (Cockcroft-Gault) 44.2 Glucose Level 110 mg/dL (70-99) Calcium Level 8.7 mg/dL (8.5-10.1) Micro Micro Microbiology 09/18/19 Blood Culture - Final, Complete NO GROWTH AFTER 5 DAYS Review of Systems Constitutional: yes: alert, oriented Ears/Nose/Throat: Yes: no symptom reported Eyes: Yes: no symptom reported Pulmonary: Yes no symptom reported Cardiovascular: Yes no symptom reported Gastrointestional: Yes: no symptom reported Genitourinary: Yes: no symptom reported Musculoskeletal: Yes: no symptom reported Skin: Yes no symptom reported Psychiatric/Neurological: Yes: no symptom reported Physical Exam General Appearance: no apparent distress Skin: warm Respiratory: decreased breath sounds Heart: S1S2 Abdomen: soft, bowel sounds present Genitourinary: bladder flat Extremities: pulses present Neurology: alert, oriented Musculoskeletal: Osteoarthritis Assessment Assessment IMP SBO DEHYDRATION MARISOL-IMPROVING, CR 1.6 FROM 2.6 SUSPECT CKD WITH CR AT BASELINE NOW-CR OF 1.6 PLAN HYDRATION PPN NGT WILL FOLLOW CRISTEL MANZANO MD Sep 23, 2019 12:24
--- NOTE | 2019-09-23 13:05 | PN ---
DATE: 09/23/2019 SUBJECTIVE: The patient is resting slightly propped up in bed, no apparent distress, awake, alert; denied any nausea, vomiting, or abdominal pain. He has been passing some gas but does not have any bowel movement today. He was seen by the surgical team and they decided to continue with nasogastric tube. OBJECTIVE: GENERAL: When I saw him this morning, he looked well and was clearly in no apparent respiratory distress; pale but no jaundice, cyanosis, or thyromegaly; no jugular venous distention; no limb edema. VITAL SIGNS: His heart rate was 79, blood pressure was 122/79, temperature 97, respiratory rate was 16, and oxygen saturation was 94%. His intake was 2100, output was 3700. ABDOMEN: Distended and soft with bowel sounds still continue to be sluggish. LABORATORY DATA: As of this morning, his serum sodium was 139, potassium 3.5, chloride 103, bicarbonate 27, anion gap of 9, BUN 35, creatinine 1.6, estimated GFR was 44 mL per minute, his glucose 110, and calcium was 8.7. ASSESSMENT: 1. Small bowel obstruction, status post laparoscopic converted to open exploration and lysis of adhesion and release of bowel obstruction at the mid ileum. 2. The patient has multiple other medical problems including: A. Hypertension. B. Hyperlipidemia. C. Acute on chronic kidney injury, improving. His creatinine is down to 1.6. D. Severe vitamin B12 deficiency for which he is now on cyanocobalamin. PLAN: Continue [id number] status; continue with intravenous procalamine, intravenous Protonix, intravenous antibiotics; continue with physical and occupational therapy. ANNE MORALES MD DR: TAYO/sven JOB#: [id number] / [id number]
[2019-09-23 15:00] VITALS: BP 120/78
[2019-09-23 19:00] VITALS: BP 126/65
[2019-09-23 23:00] VITALS: BP 124/75
[2019-09-24] MEDS: PIPERACILLIN/TAZOBACTAM 3.375 GM in IV NORMAL SALINE 50ML 50 ML IV SCH ×5 (00:09→23:23)
[2019-09-24 03:00] VITALS: BP 117/70
[2019-09-24 05:15] LABS: CALCIUM 8.5 mg/dL (8.5-10.1); CREATININE 1.6 mg/dL (0.7-1.3); GFR 44.2; POTASSIUM 3.8 mmol/L (3.5-5.1)
[2019-09-24] MEDS: PANTOPRAZOLE IV PUSH 40 MG VIAL. IVP SCH (06:54)
[2019-09-24 07:00] VITALS: BP 122/70
[2019-09-24] MEDS: AMINO AC 3%/ELECTROLYTE/GLYCER 1,000 ML IV SCH ×2 (07:00→12:00)
[2019-09-24] MEDS: CYANOCOBALAMIN (VITAMIN B-12) 1,000 MCG/ML VIAL IM SCH (09:44)
[2019-09-24] MEDS: IRON SUCROSE COMPLEX 200 MG in IV NORMAL SALINE 100ML 100 ML IV SCH (09:44)
[2019-09-24 11:00] VITALS: BP 124/86
--- NOTE | 2019-09-24 11:40 | PN ---
DATE: 09/24/2019 SUBJECTIVE: The patient is sitting propped up in bed, in no apparent distress. His NG tube was clamped. On questioning him, he denied any abdominal pain. Denies nausea or vomiting. He has not had any bowel movement today. He was passing gas. Denied any abdominal pain. PHYSICAL EXAMINATION: GENERAL: When I saw him this morning, he looked well and was clearly in no apparent respiratory distress, but no jaundice, cyanosis or thyromegaly. No jugular venous distention. No limb edema. VITAL SIGNS: His heart rate was 81, blood pressure was 122/70, temperature 98.1, respiratory rate was 16, and oxygen saturation was 96%. ABDOMEN: Distended, soft with midline surgical incision covered with dressing. There is no tenderness. No guarding or rigidity. Bowel sounds are normal. NEUROLOGIC: He is grossly intact. His intake over the last 24 hours was incompletely recorded, output was 2260. LABORATORY DATA: His most recent white cell count was 9000, hemoglobin 10, hematocrit 30, MCV 90 and platelet count of 252,000. His chemistry showed a serum sodium 139, potassium 3.8, chloride 103, bicarbonate 26, anion gap of 10, BUN 32, creatinine 1.6. Estimated GFR was 44 mL per minute. His glucose was 108. Calcium was 8.5. ASSESSMENT: 1. Small-bowel obstruction, status post laparoscopic converted to open exploration and lysis of adhesions, release of bowel obstruction at the mid ileum. 2. The patient has multiple other medical problems including: A. Hypertension. B. Hyperlipidemia. C. Acute on chronic kidney injury, improving. His creatinine is down to 1.6. D. Severe vitamin B12 deficiency, for which he is now on cyanocobalamin. PLAN: Continue with NG tube. Continue with intravenous procalamine. Continue with IV Protonix and IV antibiotic. Continue with physical and occupational therapy. Await the decision by surgical team to remove the NG tube and advance his diet. ANNE MORALES MD DR: TAYO/sven JOB#: [id number] / [id number]
--- NOTE | 2019-09-24 11:57 | PDOC ---
SURGICAL PROGRESS NOTE Subjective no c/o with NG off last 24 h Vital Signs Vital Signs Date Time Temp Pulse Resp B/P (MAP) Pulse Ox O2 Delivery O2 Flow Rate FiO2 09/24/19 11:00 97.8 93 18 124/86 (99) 95 Room Air 97.8 09/23/19 19:00 96.0 I&O Intake and Output 09/24/19 07:00 Intake Total 50 ml Output Total 900 ml Balance -850 ml Intake Oral 50 ml Output Urine Total 200 ml Drainage Total 700 ml PATIENT HAS A REDMAN: No General: Alert, No acute distress Abdomen: Soft, Other (protuberant,not TTP) Labs Laboratory Tests Test 09/23/19 04:30 09/24/19 04:40 Sodium Level 139 mmol/L (136-145) 139 mmol/L (136-145) Potassium Level 3.5 mmol/L (3.5-5.1) 3.8 mmol/L (3.5-5.1) Chloride Level 103 mmol/L (98-107) 103 mmol/L (98-107) Carbon Dioxide Level 27 mmol/L (21-32) 26 mmol/L (21-32) Anion Gap 9 (6-14) 10 (6-14) Blood Urea Nitrogen 35 mg/dL (8-26) 32 mg/dL (8-26) Creatinine 1.6 mg/dL (0.7-1.3) 1.6 mg/dL (0.7-1.3) Estimated GFR (Cockcroft-Gault) 44.2 44.2 Glucose Level 110 mg/dL (70-99) 108 mg/dL (70-99) Calcium Level 8.7 mg/dL (8.5-10.1) 8.5 mg/dL (8.5-10.1) Laboratory Tests Test 09/24/19 04:40 Sodium Level 139 mmol/L (136-145) Potassium Level 3.8 mmol/L (3.5-5.1) Chloride Level 103 mmol/L (98-107) Carbon Dioxide Level 26 mmol/L (21-32) Anion Gap 10 (6-14) Blood Urea Nitrogen 32 mg/dL (8-26) Creatinine 1.6 mg/dL (0.7-1.3) Estimated GFR (Cockcroft-Gault) 44.2 Glucose Level 108 mg/dL (70-99) Calcium Level 8.5 mg/dL (8.5-10.1) Assessment/Plan s/p open release SBO d/c RAMAN Murcia MD Sep 24, 2019 11:57
--- NOTE | 2019-09-24 12:06 | PDOC ---
Subjective: Subjective: Working with therapy, indicates doing okay. Objective: Vital Signs: Vital Signs Date Time Temp Pulse Resp B/P (MAP) Pulse Ox O2 Delivery O2 Flow Rate FiO2 09/24/19 11:00 97.8 93 18 124/86 (99) 95 Room Air 97.8 09/23/19 19:00 96.0 Labs: Laboratory Tests Test 09/24/19 04:40 Sodium Level 139 mmol/L Potassium Level 3.8 mmol/L Chloride Level 103 mmol/L Carbon Dioxide Level 26 mmol/L Anion Gap 10 Blood Urea Nitrogen 32 mg/dL Creatinine 1.6 mg/dL Estimated GFR (Cockcroft-Gault) 44.2 Glucose Level 108 mg/dL Calcium Level 8.5 mg/dL PE: GEN: NAD - walking halls w/ therapy - NG out, using walker NEURO/PSYCH: A & O 3 - waves to me A/P: SBO s/p open exploration w/ YOANNA - NG out Anemia - on iron, B12, and PPI; plans for outpt 'scopes -- Plans to start clear liquids. Can change to PO PPI as able. Hemodynamically unstable?: No Is patient in severe pain?: No Is NPO status required?: No JOSE ROLLINS Sep 24, 2019 12:06
--- NOTE | 2019-09-24 12:58 | PDOC ---
Renal-Progress Notes Subjective Notes Notes DOING BETTER History of Present Illness Hx of present illness STABLE Vitals Vitals Vital Signs Date Time Temp Pulse Resp B/P (MAP) Pulse Ox O2 Delivery O2 Flow Rate FiO2 09/24/19 11:00 97.8 93 18 124/86 (99) 95 Room Air 97.8 09/23/19 19:00 96.0 Weight Weight [ ] I.O. Intake and Output Intake and Output 09/24/19 07:00 Intake Total 50 ml Output Total 900 ml Balance -850 ml Intake Oral 50 ml Output Urine Total 200 ml Drainage Total 700 ml Labs Labs Laboratory Tests Test 09/24/19 04:40 Sodium Level 139 mmol/L (136-145) Potassium Level 3.8 mmol/L (3.5-5.1) Chloride Level 103 mmol/L (98-107) Carbon Dioxide Level 26 mmol/L (21-32) Anion Gap 10 (6-14) Blood Urea Nitrogen 32 mg/dL (8-26) Creatinine 1.6 mg/dL (0.7-1.3) Estimated GFR (Cockcroft-Gault) 44.2 Glucose Level 108 mg/dL (70-99) Calcium Level 8.5 mg/dL (8.5-10.1) Micro Micro Microbiology 09/18/19 Blood Culture - Final, Complete NO GROWTH AFTER 5 DAYS Review of Systems Constitutional: yes: alert, oriented Ears/Nose/Throat: Yes: no symptom reported Eyes: Yes: no symptom reported Pulmonary: Yes no symptom reported Cardiovascular: Yes no symptom reported Gastrointestional: Yes: no symptom reported Genitourinary: Yes: no symptom reported Musculoskeletal: Yes: no symptom reported Skin: Yes no symptom reported Psychiatric/Neurological: Yes: no symptom reported Physical Exam General Appearance: no apparent distress Skin: warm Respiratory: decreased breath sounds Heart: S1S2 Abdomen: soft, bowel sounds present Genitourinary: bladder flat Extremities: pulses present Neurology: alert, oriented Musculoskeletal: Osteoarthritis Assessment Assessment IMP SBO DEHYDRATION MARISOL-RESOLVED SUSPECT CKD WITH CR AT BASELINE NOW-CR OF 1.6 PLAN HYDRATION PPN CLD WILL FOLLOW CRISTEL MANZANO MD Sep 24, 2019 12:58
[2019-09-24 15:00] VITALS: BP 108/69
[2019-09-24 19:00] VITALS: BP 132/81
[2019-09-24 23:00] VITALS: BP 116/64
[2019-09-25] MEDS: AMINO AC 3%/ELECTROLYTE/GLYCER 1,000 ML IV SCH ×2 (02:04→16:20)
[2019-09-25 03:00] VITALS: BP 121/69
[2019-09-25] MEDS: PANTOPRAZOLE IV PUSH 40 MG VIAL. IVP SCH (05:23)
[2019-09-25] MEDS: PIPERACILLIN/TAZOBACTAM 3.375 GM in IV NORMAL SALINE 50ML 50 ML IV SCH (05:24)
[2019-09-25 07:00] VITALS: BP 108/67
--- NOTE | 2019-09-25 10:06 | PN ---
DATE: 09/25/2019 SUBJECTIVE: The patient is sitting comfortably in his chair, in no apparent distress. His NG tube was removed. He is now on a clear liquid diet. Has multiple bowel movements, passing gas. PHYSICAL EXAMINATION: GENERAL: On examining him, he looked well and was clearly in no apparent respiratory distress. VITAL SIGNS: His heart rate was 76, blood pressure was 121/69, temperature 98.8, respiratory rate 18, and oxygen saturation was 98%. ABDOMEN: Distended, soft, nontender. Bowel sounds normal. LABORATORY DATA: His chemistry as of yesterday showed BUN of 32, creatinine 1.6. ASSESSMENT: 1. Small bowel obstruction, status post laparoscopic converted to open exploration and lysis of adhesion, release of bowel obstruction of the mid ileum. 2. The patient has multiple other medical problems, including: A. Hypertension. B. Hyperlipidemia. C. Acute on chronic kidney injury, improving. His creatinine is down to 1.6 and stabilized there. D. Severe vitamin B12 deficiency, for which he is now on cyanocobalamin. PLAN: To continue with the antibiotic. Continue with cyanocobalamin injection. Continue with morphine and Protonix. His white cell count has been within normal range. He has been afebrile and hemodynamically stable. I will discontinue his Zosyn. ANNE MORALES MD DR: TAYO/sven JOB#: [id number] / [id number]
[2019-09-25 11:00] VITALS: BP 114/52
--- NOTE | 2019-09-25 11:38 | PDOC ---
SHELBY HUGHES 3D MODELER 09/25/19 1138: SURGICAL PROGRESS NOTE Subjective tolerating clears feels well no bloating + stool Vital Signs Vital Signs Date Time Temp Pulse Resp B/P (MAP) Pulse Ox O2 Delivery O2 Flow Rate FiO2 09/25/19 08:00 Room Air 09/25/19 07:00 99.7 88 20 108/67 (81) 98 99.7 I&O Intake and Output 09/25/19 07:00 Intake Total 800 ml Output Total 950 ml Balance -150 ml Intake Oral 800 ml Output Urine Total 950 ml # Voids 1 General: Alert, Oriented X3, Cooperative Abdomen: Soft, No tenderness Labs Laboratory Tests Test 09/24/19 04:40 Sodium Level 139 mmol/L (136-145) Potassium Level 3.8 mmol/L (3.5-5.1) Chloride Level 103 mmol/L (98-107) Carbon Dioxide Level 26 mmol/L (21-32) Anion Gap 10 (6-14) Blood Urea Nitrogen 32 mg/dL (8-26) Creatinine 1.6 mg/dL (0.7-1.3) Estimated GFR (Cockcroft-Gault) 44.2 Glucose Level 108 mg/dL (70-99) Calcium Level 8.5 mg/dL (8.5-10.1) Assessment/Plan advance diet RAMAN GRIDER MD 09/25/19 1153: SURGICAL PROGRESS NOTE Assessment/Plan pt seen agree with above SHELBY HUGHES 3D MODELER Sep 25, 2019 11:38 RAMAN GRIDER MD Sep 25, 2019 11:53
--- NOTE | 2019-09-25 12:28 | PDOC ---
Subjective: Subjective: Tolerating clears, says supposed to try full liquids. Stooling, feeling better. Objective: Vital Signs: Vital Signs Date Time Temp Pulse Resp B/P (MAP) Pulse Ox O2 Delivery O2 Flow Rate FiO2 09/25/19 11:00 98.2 77 20 114/52 (72) 99 Room Air 98.2 PE: GEN: NAD - up in chair LUNGS: clear anteriorly HEART: RRR ABD: soft, quiet BS, non-tender NEURO/PSYCH: A & O 3 A/P: SBO s/p open exploration w/ YOANNA Anemia - on iron, B12, and PPI; plans for outpt 'scopes -- Advance diet per surgery. Outpt scopes. Hemodynamically unstable?: No Is patient in severe pain?: No Is NPO status required?: No JOSE ROLLINS Sep 25, 2019 12:28
[2019-09-25 15:00] VITALS: BP 115/72
--- NOTE | 2019-09-25 15:08 | PDOC ---
Renal-Progress Notes Subjective Notes Notes NO NEW COMPLAINTS History of Present Illness Hx of present illness STABLE Vitals Vitals Vital Signs Date Time Temp Pulse Resp B/P (MAP) Pulse Ox O2 Delivery O2 Flow Rate FiO2 09/25/19 11:00 98.2 77 20 114/52 (72) 99 Room Air 98.2 Weight Weight [ ] I.O. Intake and Output Intake and Output 09/25/19 07:00 Intake Total 800 ml Output Total 950 ml Balance -150 ml Intake Oral 800 ml Output Urine Total 950 ml # Voids 1 Micro Micro Microbiology 09/18/19 Blood Culture - Final, Complete NO GROWTH AFTER 5 DAYS Review of Systems Constitutional: yes: alert, oriented Ears/Nose/Throat: Yes: no symptom reported Eyes: Yes: no symptom reported Pulmonary: Yes no symptom reported Cardiovascular: Yes no symptom reported Gastrointestional: Yes: no symptom reported Genitourinary: Yes: no symptom reported Musculoskeletal: Yes: no symptom reported Skin: Yes no symptom reported Psychiatric/Neurological: Yes: no symptom reported Physical Exam General Appearance: no apparent distress Skin: warm Respiratory: decreased breath sounds Heart: S1S2 Abdomen: soft, bowel sounds present Genitourinary: bladder flat Extremities: pulses present Neurology: alert, oriented Musculoskeletal: Osteoarthritis Assessment Assessment IMP SBO DEHYDRATION MARISOL-RESOLVED SUSPECT CKD WITH CR AT BASELINE NOW-CR OF 1.6 PLAN HYDRATION PPN ADVANCING DIET WILL FOLLOW CRISTEL MANZANO MD Sep 25, 2019 15:08
[2019-09-25 19:00] VITALS: BP 130/79
[2019-09-25 23:00] VITALS: BP 112/71
[2019-09-26 03:00] VITALS: BP 107/68
[2019-09-26] MEDS: AMINO AC 3%/ELECTROLYTE/GLYCER 1,000 ML IV SCH (04:01)
[2019-09-26] MEDS: PANTOPRAZOLE IV PUSH 40 MG VIAL. IVP SCH (05:44)
[2019-09-26 07:00] VITALS: BP 110/72
[2019-09-26] MEDS: IRON SUCROSE COMPLEX 200 MG in IV NORMAL SALINE 100ML 100 ML IV SCH (09:01)
--- NOTE | 2019-09-26 10:01 | PDOC ---
Subjective: Subjective: Tolerating full liquids w/o n/v or abd pain. Passes gas and some stool comes out. Wonders about going home. Objective: Vital Signs: Vital Signs Date Time Temp Pulse Resp B/P (MAP) Pulse Ox O2 Delivery O2 Flow Rate FiO2 09/26/19 07:00 97.6 66 18 110/72 (85) 96 Room Air 97.6 PE: GEN: NAD, looks well LUNGS: CTAB HEART: RRR ABD: slightly more distended today, quiet BS, non-tender NEURO/PSYCH: A & O 3 A/P: SBO s/p open exploration w/ YOANNA Anemia - on iron, B12, and PPI -- Diet/DC per surgery and primary. Outpt scopes as previously discussed. Change to PO PPI, continue iron and B12 on DC. Hemodynamically unstable?: No Is patient in severe pain?: No Is NPO status required?: No JOSE ROLLINS Sep 26, 2019 10:01
[2019-09-26 11:00] VITALS: BP 129/75
--- NOTE | 2019-09-26 11:24 | PDOC ---
Renal-Progress Notes Subjective Notes Notes NO NEW COMPLAINTS History of Present Illness Hx of present illness STABLE Vitals Vitals Vital Signs Date Time Temp Pulse Resp B/P (MAP) Pulse Ox O2 Delivery O2 Flow Rate FiO2 09/26/19 08:00 Room Air 09/26/19 07:00 97.6 66 18 110/72 (85) 96 97.6 Weight Weight [ ] I.O. Intake and Output Intake and Output 09/26/19 07:00 Intake Total 2140 ml Output Total 1450 ml Balance 690 ml Intake Oral 1090 ml IV Total 1050 ml Output Urine Total 1450 ml Micro Micro Microbiology 09/18/19 Blood Culture - Final, Complete NO GROWTH AFTER 5 DAYS Review of Systems Constitutional: yes: alert, oriented Ears/Nose/Throat: Yes: no symptom reported Eyes: Yes: no symptom reported Pulmonary: Yes no symptom reported Cardiovascular: Yes no symptom reported Gastrointestional: Yes: no symptom reported Genitourinary: Yes: no symptom reported Musculoskeletal: Yes: no symptom reported Skin: Yes no symptom reported Psychiatric/Neurological: Yes: no symptom reported Physical Exam General Appearance: no apparent distress Skin: warm Respiratory: decreased breath sounds Heart: S1S2 Abdomen: soft, bowel sounds present Genitourinary: bladder flat Extremities: pulses present Neurology: alert, oriented Musculoskeletal: Osteoarthritis Assessment Assessment IMP SBO DEHYDRATION MARISOL-RESOLVED SUSPECT CKD WITH CR AT BASELINE NOW-CR OF 1.6 PLAN STOP PPN ADVANCING DIET WILL SIGN OFF CRISTEL MANZANO MD Sep 26, 2019 11:24
--- NOTE | 2019-09-26 13:10 | PDOC ---
SHELBY HUGHES APRN 09/26/19 1310: SURGICAL PROGRESS NOTE Subjective feels well tolerating diet loose stools Vital Signs Vital Signs Date Time Temp Pulse Resp B/P (MAP) Pulse Ox O2 Delivery O2 Flow Rate FiO2 09/26/19 08:00 Room Air 09/26/19 07:00 97.6 66 18 110/72 (85) 96 97.6 I&O Intake and Output 09/26/19 07:00 Intake Total 2140 ml Output Total 1450 ml Balance 690 ml Intake Oral 1090 ml IV Total 1050 ml Output Urine Total 1450 ml General: Alert, Oriented X3, Cooperative Abdomen: Soft, Other (ND, NTTP, incision healing well) Assessment/Plan advance diet ok to dc home if tolerates diet RAMAN GRIDER MD 09/26/19 1343: SURGICAL PROGRESS NOTE Assessment/Plan as above SHELBY HUGHES APRN Sep 26, 2019 13:10 RAMAN GRIDER MD Sep 26, 2019 13:43
[2019-09-26] MEDS ORDERED: CYAN10002 IM (14:28)
[2019-09-26] MEDS ORDERED: PANT40TA77 PO (14:28)
[2019-09-26] MEDS ORDERED: HYDR-2759 PO (15:33)
--- NOTE | 2019-09-26 16:13 | NUR ---
Discharge Note: FLORENTIN MYRICK [address] [place] [address] Discharge instructions and discharge home medications reviewed with Patient and a copy given. All questions have been answered and understanding verbalized. The following instructions and handouts were given: DIET, ACTIVITY, MEDICATION LIST AND FOLLOW UP INSTRUCTIONS PROVIDED TO PATIENT. Discontinued lines and drains: Peripheral IV DISCONTINUED AND CATHETER intact. Patient discharged to Home or Self Care with Family Member via Ambulated
--- NOTE | 2019-09-26 18:59 | DS ---
DATE OF DISCHARGE: 09/26/2019 HOSPITAL COURSE: The patient is a 59-year-old male patient who was seen originally at [facility] Emergency Room with a complaint of abdominal pain, cramping. A CT scan of the abdomen and pelvis showed that the patient has bibasilar linear atelectasis. Liver, spleen, pancreas, adrenal glands are normal. Gallbladder fossa is unremarkable. Moderate left renal atrophy, right kidney is unremarkable. Stomach is distended with fluid. He has small bowel is distended with transition in the right lower quadrant and the appendix was normal. Therefore, the patient was transferred to [facility] and underwent laparoscopic converted to open exploration with lysis of adhesion. For his lactic acidosis, he was started on IV antibiotic in the form of Zosyn. He was also noted to have acute kidney injury, was started on IV fluid. He developed postoperative paralytic ileus that has gradually improved. His kidney function has steadily improved such that his creatinine came back from 2.6 to 1.6, which is baseline. He was found to have severe vitamin B12 deficiency with vitamin B12 level of 125 mcg/mL. He was started on cyanocobalamin 1000 mcg/mL intramuscularly once a week and his NG tube was clamped and eventually removed. He was started on a clear liquid diet and advanced as tolerated. He has tolerated his diet today and a decision was made to discharge him home. PHYSICAL EXAMINATION: GENERAL: When I saw him this afternoon, he looked well and was clearly in no apparent respiratory distress. No pallor, jaundice, cyanosis or thyromegaly. No jugular venous distention or limb edema. VITAL SIGNS: His heart rate was 81, blood pressure 129/75, temperature 97.9, respiratory rate was 16, and oxygen saturation was 100%. HEAD, EYES, EARS, NOSE AND THROAT: Showed normocephalic, atraumatic. NECK: Supple. HEART: Normal first and second heart sounds. No gallop or murmur. CHEST: Clear to auscultation. No crepitation or rhonchi. ABDOMEN: Distended, soft, nontender. No guarding or rigidity. No organomegaly. All hernial orifice intact. Bowel sounds normal. 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 He moves extremities without difficulty, ambulates without assistance or assistive devices. His intake was 800, output was 950. LABORATORY DATA: As of yesterday serum sodium was 139, potassium 3.8, chloride 103, bicarbonate 26, anion gap of 10, BUN 32, creatinine 1.6, estimated glomerular filtration rate was 44 mL per minute, his glucose was 108, calcium was 8.5. His white cell count was 9000, hemoglobin 10, hematocrit 30, MCV 90 and platelet count 252,000. DISCHARGE MEDICATIONS: He was discharged home to continue on cyanocobalamin 1000 mcg/mL intramuscular once a month indefinitely, Protonix 40 mg once a day, atorvastatin calcium 20 mg at bedtime, telmisartan/hydrochlorothiazide or Micardis 80/25 one tablet once a day. FINAL DISCHARGE DIAGNOSES: 1. Small-bowel obstruction, status post laparoscopic converted to open exploration and lysis of adhesion and release of bowel obstruction in the mid ileum. 2. The patient has multiple other medical problems including: A. Hypertension. B. Hyperlipidemia. C. Bigab-kf-jafomss kidney injury, improving. His creatinine is down to 1.6. He has also severe vitamin B12 deficiency for which he now on cyanocobalamin. ANNE MORALES MD DR: TAYO/sven JOB#: [id number] / [id number]
[2019-09-27] MEDS ORDERED: PANTOPRAZOLE 40 MG TABLET.DR. PO SCH (07:30)
[2019-10-01] MEDS ORDERED: CYANOCOBALAMIN (VITAMIN B-12) 1,000 MCG/ML VIAL IM SCH (09:00)
== END 2019-09-26 16:14 | disposition home or self-care (01) | DRG 327 ==
LOC: 4 NORTH 15:20
PROVIDERS: ADMIT Internal Medicine; ATTEND Internal Medicine
PROC: 0DN80ZZ Release Small Intestine, Open Approach (ICD-10-PCS; 2019-09-17)
PROC: 0DJ64ZZ Inspection of Stomach, Percutaneous Endoscopic Approach (ICD-10-PCS; principal; 2019-09-17 11:00)
DX: K56.609 Unspecified intestinal obstruction, unspecified as to partial versus complete obstruction (principal); N17.9 Acute kidney failure, unspecified; J98.11 Atelectasis; E87.2 Acidosis; K92.2 Gastrointestinal hemorrhage, unspecified; K56.0 Paralytic ileus; M19.90 Unspecified osteoarthritis, unspecified site; K21.9 Gastro-esophageal reflux disease without esophagitis; E78.5 Hyperlipidemia, unspecified; N18.9 Chronic kidney disease, unspecified; I12.9 Hypertensive chronic kidney disease with stage 1 through stage 4 chronic kidney disease, or unspecified chronic kidney disease; M48.061 Spinal stenosis, lumbar region without neurogenic claudication; K40.90 Unilateral inguinal hernia, without obstruction or gangrene, not specified as recurrent; E86.0 Dehydration; D51.0 Vitamin B12 deficiency anemia due to intrinsic factor deficiency; I77.6 Arteritis, unspecified; D72.829 Elevated white blood cell count, unspecified; N40.0 Benign prostatic hyperplasia without lower urinary tract symptoms; Z53.31 Laparoscopic surgical procedure converted to open procedure; Z86.73 Personal history of transient ischemic attack (TIA), and cerebral infarction without residual deficits; Z82.49 Family history of ischemic heart disease and other diseases of the circulatory system
CPT/HCPCS: 36415; 74018; 74021; 76770; 80048; 80053; 81001; 82607; 83540; 83550; 83605; 83615; 83735; 84100; 84300; 85007; 85025; 85027; 86850; 86900; 86901; 87040; A7015; C1769; C9113; J1100; J1756; J2001; J2270; J2370; J2405; J2543; J2704; J2710; J3010; J3420; J3490; J7030; J7040; J7120; 97530; 97535; G0378

== ENCOUNTER → 2019-11-21 | Day surgery (SDC) | payer BC, OTHER ==
[~2019-11-21] MED LIST: ATOR20TA58 PO; CYAN10002 IM; HYDR-2759 PO; IV RINGERS,LACTATED 1000ML 1,000 ML IV SCH; LIDOCAINE 2% PF 5 ML VIAL. ONE; PANT40TA77 PO; PROPOFOL 40 ML IV ONE; TELM1TAB PO; TELM1TAB26 PO
[2019-11-21 09:54] VITALS: BP 126/83
--- NOTE | 2019-11-21 10:30 | CONS ---
DATE OF CONSULTATION: 11/21/2019 REFERRING PHYSICIAN: ANDREW Fitzpatrick REASON FOR CONSULTATION: Chronic anemia. HISTORY OF PRESENT ILLNESS: This is a 59-year-old male with past medical history significant for detached retina, hypertension, and gastroesophageal reflux disease, who is seen with anemia. He denies any melena and/or hematochezia. He had previous small-bowel obstruction. Weight and appetite have been stable since. There is no family history of colon cancer, though his father did have colon polyps and his son has Crohn disease. He has undergone previous upper endoscopy in the past for gastroesophageal reflux disease. He has never undergone colonoscopy. He is otherwise without additional complaints. PAST MEDICAL HISTORY: SBO, B12 deficiency, anemia, and hypertension. ALLERGIES: None. MEDICATIONS: Include pantoprazole, telmisartan, and hydrochlorothiazide. SOCIAL HISTORY: He is a nonsmoker and nondrinker. FAMILY HISTORY: Noncontributory except for colonic polyps and Crohn. Diabetes in multiple family members. REVIEW OF SYSTEMS: As per records. PHYSICAL EXAMINATION: GENERAL: Reveals a well-nourished and well-developed male who is alert, cooperative, and in no acute distress. VITAL SIGNS: Temperature 98, pulse 98, and respiratory rate 18. LUNGS: Clear. CARDIOVASCULAR: Reveals an S1, S2 without S3, S4, or appreciable murmur. ABDOMEN: Reveals a soft abdomen. Normal bowel sounds without appreciable hepatosplenomegaly. EXTREMITIES: No cyanosis, clubbing, or edema. IMPRESSION AND PLAN: Anemia, chronic blood loss, etiology is to be determined. Differential includes colon and gastric cancer, colon and gastric polyps, arteriovenous malformations, inflammatory bowel disease, and celiac disease. Therefore, I recommend upper endoscopy and colonoscopy to further assess. Risks and benefits of procedure including risk of hemorrhage and perforation during the operation have been discussed. The patient is willing to proceed at this time. SELMA POOLE MD DR: RODGER/sven JOB#: [id number] / [id number] NELIDA Bravo
--- NOTE | 2019-11-24 13:07 | PATHOLOGY ---
[facility] Accession Number: [id number] . 01 Material submitted: . stomach - ANTRAL POLYPS . 01 Clinical history: . anemia, gerd . 02 Diagnosis: Gastric biopsies, gastric antral polyps: - Hyperplastic polyps, showing focal chronic inflammation. LBQ 11/24/2019 0945 Local . 02 Comment: There are no adenomatous changes or evidence of malignancy. (JPM/db; 11/24/2019) . 02 Electronically signed: . Tyron Riley MD, Pathologist NPI- [id number] . 01 Gross description: . The specimen is received in formalin, labeled "Henre, Delvin, antral polyps" and consists of 2 polypoid segments of pink-addison tissue measuring 0.8 x 0.7 x 0.4 cm and 0.9 x 0.8 x 0.6 cm. One margin is inked black and one blue. They are sectioned and entirely submitted in A1. (SDY; 11/21/2019) SYU/SYU 11/21/2019 1748 Local . 02 Pathologist provided ICD-10: K31.7 . 02 CPT . 508773 Specimen Comment: A courtesy copy of this report has been sent to [phone], [phone] Specimen Comment: [id number] Specimen Comment: Report sent to / DR ALONSO Performed at: 01 [facility] [address], [place], [place] [id number] MD Mack Anderson MD Phone: [phone] Performed at: 02 [facility] [address] [place], [place] [id number] MD Tyron Riley MD Phone: [phone]
== END ==
LOC: ENDOS 07:29
PROVIDERS: ATTEND Internal Medicine Gastroenterology
DX: D50.0 Iron deficiency anemia secondary to blood loss (chronic) (principal); K57.30 Diverticulosis of large intestine without perforation or abscess without bleeding; K31.7 Polyp of stomach and duodenum; K64.0 First degree hemorrhoids; K56.609 Unspecified intestinal obstruction, unspecified as to partial versus complete obstruction; I10 Essential (primary) hypertension; K21.9 Gastro-esophageal reflux disease without esophagitis
CPT/HCPCS: 43251; 45378; C1757; J2001; J2704